=== PATIENT | male | born 1935 | race Caucasian/White ===

== ENCOUNTER 2016-11-05 09:04 | Inpatient (IN) ==
[2016-11-05] MEDS ORDERED: Ipratropium/Albuterol Neb 3 ML IH ONE (09:19)
[2016-11-05] MEDS ORDERED: methylPREDNISolone 125 MG/2 ML VIAL IVP ONE (09:19)
--- NOTE | 2016-11-05 09:52 | Emergency Department Note ---
Disposition Clinical Impression: Community acquired pneumonia, New onset atrial fibrillation Disposition: Admitted As Inpatient Condition: Fair Time of Disposition: 10:31 SOB HPI - General Chief Complaint: ED Shortness of Breath/Dyspnea Stated Complaint: DONNA Time Seen by Provider: 11/05/16 09:16 Source: patient Mode of arrival: ambulatory Limitations: no limitations Nursing Notes Reviewed: Yes Vital Signs Reviewed: Yes - History of Present Illness 80-year-old male with a history of hypertension presents to the emergency department for evaluation of cough, congestion and dyspnea for 1 week. Patient states the day after [place] he began having a productive cough and difficulty breathing. Denies any fevers or chills. He denies any chest pain. He denies any nausea or vomiting. No history of COPD or CHF. He denies any history of DVT or PE. Is not on home O2 and does not have an inhaler at home. Exam is remarkable for an elderly male resting in bed in no acute distress. He is conversational and has a productive cough during the exam of white sputum. Lungs are diminished with bilateral expiratory wheezing and rhonchi noted throughout. Heart is mildly tachycardic and irregular. His abdomen is soft and nontender. He is awake, alert and oriented. O2 saturations 95% on 2 L. Chest x- ray and medications ordered. Pt Subjective Complaint: shortness of breath, cough Onset (ago): week(s) (1) Context: recent illness Severity: moderate Consistency/Duration: constant Improves with: oxygen, bronchodilators Worsens with: nothing Associated symptoms: Reports: cough, wheezing, sputum production. Denies: pain with inspiration, fever, orthopnea, lower extremity pain, palpitations, nausea/ vomiting, abdominal pain Treatment prior to arrival: none Cough present: Yes Cough Description: Voluntary Cough Frequency: Intermittent Sputum production: Yes Sputum Amount: Moderate Sputum Color: White - Related Data Home Medications Medication Instructions Recorded Confirmed Amlodipine Besylate/Benazepril 1 cap PO QPM 11/05/16 11/05/16 [Amlodipine-Benazepril 5-20 mg] Hydrochlorothiazide 12.5 mg PO QAM 11/05/16 11/05/16 [Hydrochlorothiazide] Simvastatin [Zocor] 20 mg PO QPM 11/05/16 11/05/16 Allergies Allergy/AdvReac Type Severity Reaction Status Date / Time No Known Allergies Allergy Verified 11/05/16 09:13 All systems ED: reviewed and negative except as stated. Constitutional: Denies: fever, chills Cardiovascular: Denies: chest pain, palpitations, orthopnea, syncope Respiratory: Reports: cough, dyspnea, wheezes Gastrointestinal: Denies: abdominal pain, nausea, vomiting Genitourinary: Denies: urgency, dysuria Musculoskeletal: Denies: back pain Integumentary: Denies: rash Neurological: Denies: headache, weakness Past Medical History - Past Medical History Medical history: Reports: hypertension Psychiatric history: Reports: no psych history - Social History Smoking Status: Never smoker Smokeless Tobacco Status: No Alcohol use: Reports: none Drug use: Reports: none Physical Exam - General Limitations: no limitations General appearance: alert, in no apparent distress - Head Head exam: atraumatic, normocephalic - Eye Eye exam: Present: normal appearance, PERRL, EOMI - Chest Chest inspection: Present: normal inspection, symmetric chest wall rise - Respiratory Respiratory exam: Present: wheezes, other (Diminished breath sounds with rhonchi bilateral expiratory wheezes.) - Cardiovascular Cardiovascular exam: Present: tachycardia, irregular rhythm, normal heart sounds - Abdominal Exam Abdominal exam: Present: soft, Non-Tender. Absent: tenderness, distention, guarding, rebound, rigidity - Neurological Exam Neurological exam: Present: alert, oriented X3 - Skin Skin exam: Present: warm, dry, intact, normal color Course - Reevaluation(s) Reevaluation #1: X-ray showing left upper lobe infiltrate concerning for pneumonia. Heart rate remains 122 bpm. Patient was tachypnic as well which meets SIRS criteria. Patient will be treated for community acquired pneumonia and admitted to the hospital for further evaluation. Otherwise remains hemodynamically stable and is mentating normally. Time: 10:30 Vital Signs Temperature 98 F 11/05/16 09:08 Pulse Rate 113 11/05/16 09:08 Respiratory Rate 20 11/05/16 09:08 Blood Pressure 136/79 11/05/16 09:08 O2 Sat by Pulse Oximetry 96 11/05/16 09:08 Temperature 98 F 11/05/16 11:53 Pulse Rate 113 11/05/16 11:18 Respiratory Rate 18 11/05/16 11:53 Blood Pressure 136/67 11/05/16 11:53 O2 Sat by Pulse Oximetry 95 11/05/16 11:18 Oxygen Delivery Oxygen Delivery Nasal Cannula Shortness of Breath/Dyspnea - Medical Records Medical records reviewed: Yes I reviewed the patient's medical records. - Lab Data Result diagrams: 11/05/16 09:20 11/05/16 09:20 Lab Results 11/05/16 11/05/16 11/05/16 Range/Units 09:20 09:20 09:20 WBC (4.3-11.1) K/mcL RBC (4.19-5.50) M/mcL Hgb (12.9-16.9) g/dL Hct (37.5-50.1) % MCV (83.0-100.0) fL MCH (28.0-33.3) pg MCHC (31.6-35.5) g/dL RDW (11.5-14.5) % Plt Count (140-400) K/mcL MPV (9.4-12.4) fL Immature Gran % (0-4) % Seg Neutrophils % % Lymphocytes % % Monocytes % % Eosinophils % % Basophils % % Neutrophils # (1.6-8.9) K/mcL Lymphocytes # (0.6-4.6) K/mcL Monocytes # (0.0-1.3) K/mcL Eosinophils # (0.0-0.6) K/mcL Basophils # (0.0-0.2) K/mcL PT 12.0 (9.4-12.1) Seconds INR 1.1 APTT 27.8 (26.0-36.0) Seconds Sodium 141 (136-145) mEq/L Potassium 3.5 (3.5-4.5) mEq/L Chloride 104 (98-109) mEq/L Carbon Dioxide 26 (19-29) mEq/L BUN 20 (8-26) mg/dL Creatinine 0.84 (0.72-1.25) mg/dL Est GFR ( Amer) > 60 (> 60) Est GFR (Non-Af Amer) > 60 (> 60) BUN/Creatinine Ratio 24 (6-26) Glucose 108 H (70-99) mg/dL Calculated Osmolality 295 (280-300) Lactic Acid (0.5-2.2) mmol/L Calcium 8.6 (8.6-10.8) mg/dL Troponin I 0.03 (0-0.03) ng/mL 01/01/17 01/01/17 Range/Units 09:20 09:20 WBC 11.2 H (4.3-11.1) K/mcL RBC 5.47 (4.19-5.50) M/mcL Hgb 14.5 (12.9-16.9) g/dL Hct 45.6 (37.5-50.1) % MCV 83.4 (83.0-100.0) fL MCH 26.5 L (28.0-33.3) pg MCHC 31.8 (31.6-35.5) g/dL RDW 13.9 (11.5-14.5) % Plt Count 243 (140-400) K/mcL MPV 12.3 (9.4-12.4) fL Immature Gran % 0.4 (0-4) % Seg Neutrophils % 75.3 % Lymphocytes % 7.9 % Monocytes % 15.2 % Eosinophils % 0.8 % Basophils % 0.4 % Neutrophils # 8.5 (1.6-8.9) K/mcL Lymphocytes # 0.9 (0.6-4.6) K/mcL Monocytes # 1.7 H (0.0-1.3) K/mcL Eosinophils # 0.1 (0.0-0.6) K/mcL Basophils # 0.0 (0.0-0.2) K/mcL PT (9.4-12.1) Seconds INR APTT (26.0-36.0) Seconds Sodium (136-145) mEq/L Potassium (3.5-4.5) mEq/L Chloride (98-109) mEq/L Carbon Dioxide (19-29) mEq/L BUN (8-26) mg/dL Creatinine (0.72-1.25) mg/dL Est GFR ( Amer) (> 60) Est GFR (Non-Af Amer) (> 60) BUN/Creatinine Ratio (6-26) Glucose (70-99) mg/dL Calculated Osmolality (280-300) Lactic Acid 2.7 H (0.5-2.2) mmol/L Calcium (8.6-10.8) mg/dL Troponin I (0-0.03) ng/mL - Radiology Data Radiology results reviewed: Yes I reviewed the patient's radiology results. - EKG Data EKG attestation: Yes I reviewed and interpreted this EKG. Rate: Reports: tachycardia Rhythm: Reports: A.Fib [place]/QRS: Reports: RBBB When compared to previous EKG there are: no significant changes Attestation Statement - Attestation Attestation: I examined this patient and my medical decision-making was reviewed with the Resident Physician. I agree with the documented findings, disposition and treatment plan as described except to the extent set forth below. Scattered rhonchi/wheezing on exam. EKG shows irregluar narrow QRS mild tachycardia, some polymorphic Ps suggestive of MAT, but Ps only present with about half of the beats - EKG most c/w new-onset A-fib. Left sided pneumonia on CXR, pt does not meet HCAP criteria. Sepsis protocol initiated d/t tachycardia and tachypnea.
[2016-11-05] MEDS ORDERED: 0.9 % Sodium Chloride 1,000 ML IVC ONE (09:57)
[2016-11-05 10:07] LABS: Basophils % 0.4 %; Eosinophils # 0.1 K/mcL (0.0-0.6); Eosinophils % 0.8 %; Hematocrit 45.6 % (37.5-50.1); Hemoglobin 14.5 g/dL (12.9-16.9); Immature Granulocytes % 0.4 % (0-4); Lymphocytes # 0.9 K/mcL (0.6-4.6); Lymphocytes % 7.9 %; Mean Corpuscular HGB Conc 31.8 g/dL (31.6-35.5); Mean Corpuscular Hemoglobin 26.5 pg (28.0-33.3); Mean Corpuscular Volume 83.4 fL (83.0-100.0); Mean Platelet Volume 12.3 fL (9.4-12.4); Monocytes # 1.7 K/mcL (0.0-1.3); Monocytes % 15.2 %; Neutrophils # 8.5 K/mcL (1.6-8.9); Platelet Count 243 K/mcL (140-400); Red Blood Count 5.47 M/mcL (4.19-5.50); Red Cell Distribution Width 13.9 % (11.5-14.5); Segmented Neutrophils % 75.3 %
[2016-11-05 10:13] LABS: INR 1.1
[2016-11-05 10:15] LABS: Activated Partial Thrombo Time 27.8 Seconds (26.0-36.0)
[2016-11-05 10:17] LABS: BUN/Creatinine Ratio 24 (6-26); Blood Urea Nitrogen 20 mg/dL (8-26); Calcium 8.6 mg/dL (8.6-10.8); Carbon Dioxide 26 mEq/L (19-29); Chloride 104 mEq/L (98-109); Glucose 108 mg/dL (70-99); Osmolality,Calculated 295 (280-300); Potassium 3.5 mEq/L (3.5-4.5); Sodium 141 mEq/L (136-145); eGFR For African Americans > 60 (> 60); eGFR For Non-African Americans > 60 (> 60)
[2016-11-05] MEDS ORDERED: Azithromycin 250 MG TABLET PO ONE (10:29)
[2016-11-05] MEDS ORDERED: 0.9 % Sodium Chloride 1,000 ML IV ONE ×2 (10:50→10:52)
[2016-11-05] MEDS ORDERED: Acetaminophen 325 MG TABLET PO PRN (11:44)
[2016-11-05] MEDS ORDERED: Ondansetron 4 MG/2 ML VIAL IVP PRN (11:44)
--- NOTE | 2016-11-05 11:44 | Internal Med History&Physical ---
<Lewis Trevino - Last Filed: 11/05/16 11:51> Date of Encounter: 11/05/16 Time of Encounter: 11:00 Assessment and Plan (1) Sepsis Current visit: Yes Status: Acute - 2 SIRS criteria (tachycardia & leukocytosis) with lactic acid at 2.4. - Likely secondary to community acquired pneumonia. - Treat pneumonia with antibiotic. - Hydration with IV NS. Qualifiers: Sepsis type: sepsis due to unspecified organism Qualified Code(s): A41.9 - Sepsis, unspecified organism (2) Community acquired pneumonia Current visit: Yes Status: Acute - Persistent productive cough and shortness of breath with leukocytosis and CXR finding raising the concern of JM pneumonia. - Can be viral or/and bacterial. - Will check respiratory infection panel and urine antigens for Legionella & Strep. pneumoniae. - Continue Rocephin and azithromycin. Plan to de-escalate later based on clinical progression and lab results. - Continue to monitor. (3) Tachycardia Current visit: Yes Status: Acute - EKG was reviewed personally and showed tachycardia with irregular rhythm. Doubt A-fib given p wave before most of QRS. - Likely secondary to current pneumonia and/or possible dehydration. - Treat pneumonia with antibiotic. - Hydration with IV NS. - Telemetry monitoring. (4) Irregular cardiac rhythm Current visit: Yes Status: Acute - See above. (5) HTN (hypertension) Current visit: Yes Status: Chronic - Continue home regiment antihypertensive medications. Qualifiers: Hypertension type: essential hypertension Qualified Code(s): I10 - Essential (primary) hypertension (6) DVT prophylaxis Current visit: Yes Status: Acute - SQ heparin. Internal Medicine - H&P: HPI Chief complaint: Worsening productive cough & shortness of breath Admitted From: Emergency Dept Plans for Post Hospital Care: Home History of present illness: Mr. Manuel is a 80 year old male with PMH of HTN. Patient presents to ED with worsening productive cough and shortness of breath. Patient states he got cold one week ago and his symptoms persist. The sputum is mostly white and no hemoptysis. Patient also has some sinus and nasal congestion. Patient denies fever, chills, chest pain/discomfort, palpitation, peripheral edema. Patient denies any known cardiac disorder. Patient doesn't think he got flu vaccine or pneumoccal vaccine in the past. Past Med Surg Social Fam HX - Past Medical History Medical history: hypertension Psychiatric history: no psych history - Past Surgical History Surgical History: appendectomy, hip replacement (Left) - Social History Smoking Status: Former smoker (Quitted 40 years ago) Smokeless Tobacco Status: No Alcohol use: none Drug use: none - Family History Father Hx Family Cardiac Disorders: Yes (Heart disease) Internal Medicine - H&P: Meds Amlodipine Besylate/Benazepril [Amlodipine-Benazepril 5-20 mg] 1 cap PO QPM 11/21 [History] Hydrochlorothiazide [Hydrochlorothiazide] 12.5 mg PO QAM 11/05/16 [History] Simvastatin [Zocor] 20 mg PO QPM 11/05/16 [History] Allergies No Known Allergies Allergy (Verified 11/05/16 09:13) All Systems PM: A 10-system review of systems was performed and is negative for pertinent findings except as documented above in the HPI. - Constitutional Constitutional: no anorexia, no chills, no fever(s), no weight gain, no weight loss - EENT Eyes: no change in vision Ears: no decreased hearing Nose, mouth and throat: no dysphagia - Cardiovascular Cardiovascular ROS IM: no chest pain, no edema, no palpitations, no syncope - Respiratory Respiratory: as per HPI, cough, dyspnea, excessive phlegm production, change in phlegm color (White), no hemoptysis - Gastrointestinal Gastrointestinal: no abdominal pain, no diarrhea, no hematochezia, no melena, no nausea, no vomiting - Genitourinary Genitourinary ROS male: no difficulty urinating, no dysuria, no hematuria - Musculoskeletal Musculoskeletal ROS IM: no arthralgias, no myalgias - Integumentary Integumentary IM: no pruritus, no rash - Neurological Neurological ROS: no focal weakness, no numbness, no tingling - Hematologic/Lymphatic Hematologic/Lymphatic: no easy bleeding, no easy bruising - Constitutional Vitals: Temp Pulse Resp BP Pulse Ox 98 F 113 18 136/67 95 11/05/16 09:08 11/05/16 11:18 11/05/16 11:18 11/05/16 11:18 11/05/16 11:18 General appearance: Present: cooperative, A&O X 3, no acute distress, answers questions appropriately - Head Head exam: Present: atraumatic, normocephalic - Eye Eye exam: Present: PERRL, conjuntiva pink, sclera anicteric - Neck Neck exam general surgery: Present: supple, trachea midline. Absent: lymphadenopathy - Respiratory Respiratory exam: Present: rhonchi (Some), wheezes (few). Absent: accessory muscle use, rales - Cardiovascular Cardiovascular exam: Present: RRR, +S1, +S2. Absent: diastolic murmur, gallop, rubs, systolic murmur - GI/Abdominal GI/Abdominal exam: Present: normal bowel sounds, soft, no peritoneal signs. Absent: distended, tenderness - Extremities Exam Extremities exam: Present: warm, radial pulses palpable and symetrical. Absent : calf tenderness, cyanotic, pedal edema - Neurological Exam Neurological exam: Present: CN II-XII intact, oriented X3, no focal deficits. Absent: pronater drift, facial droop, speech deficit - Skin Skin exam: Present: dry, intact, warm Internal Med - H&P Results - Labs CBC & Chem 7: 11/05/16 09:20 11/05/16 09:20 <Aniket Parks - Last Filed: 11/05/16 14:40> Date of Encounter: 11/05/16 Internal Medicine - H&P: HPI History of present illness: Mr. Manuel is a 80 year old male Past Med Surg Social Fam HX - Family History Father History Unknown: Yes Living Status: Mother History Unknown: Yes Living Status: Age at : 85 All Systems PM: A 10-system review of systems was performed and is negative for pertinent findings except as documented above in the HPI. - Constitutional Vitals: Temp Pulse Resp BP Pulse Ox 97.9 F 103 15 139/72 96 11/05/16 11:59 11/05/16 11:59 11/05/16 11:59 11/05/16 11:59 11/05/16 11:59 Internal Med - H&P Results - Labs CBC & Chem 7: 11/05/16 09:20 11/05/16 09:20 - Attending Attestation I have seen and examined this patient independently. I have discussed the case with the resident, Dr. Trevino. I agree with the data gathering in the HPI, physical examination findings, assessment and plan as documented by the resident. Tachycardia, leukocytosis and elevaiton of lactic acid in setting of CAP. Continue antibiotics and fluids. Doing better. Anticipate early discharge. The plan of care was discussed in detail with the patient and his daughters, they expressed understanding.
[2016-11-05] MEDS ORDERED: 0.9 % Sodium Chloride 1,000 ML IVC SCH (11:45)
[2016-11-05 14:44] LABS: Adenovirus Not Detected (Not Detect); Bordetella Pertussis Not Detected (Not Detect); Chlamydophila pneumoniae Not Detected (Not Detect); Coronavirus 229E Not Detected (Not Detect); Coronavirus HKU1 Not Detected (Not Detect); Coronavirus NL63 Not Detected (Not Detect); Coronavirus OC43 Not Detected (Not Detect); Human Metapneumovirus Not Detected (Not Detect); Human Rhinovirus/Enterovirus Not Detected (Not Detect); Influenza A Subtype 2009 H1 Not Detected (Not Detect); Influenza A Untypeable Not Detected (Not Detect); Influenza B Not Detected (Not Detect); Mycoplasma pneumoniae Not Detected (Not Detect); Parainfluenza Virus 1 Not Detected (Not Detect); Parainfluenza Virus 2 Not Detected (Not Detect); Parainfluenza Virus 3 Not Detected (Not Detect); Parainfluenza Virus 4 Not Detected (Not Detect); Respiratory Syncytial Virus Not Detected (Not Detect)
[2016-11-05] MEDS: 0.9 % Sodium Chloride 1,000 ML IVC SCH (15:01)
[2016-11-05] MEDS: *HR* Heparin 5,000 UNIT/ML VIAL SQ SCH (16:50)
[2016-11-05] MEDS: amLODIPine 5 MG TABLET PO SCH (16:57)
[2016-11-05] MEDS: Lisinopril 20 MG TABLET PO SCH (16:57)
[2016-11-06] MEDS: 0.9 % Sodium Chloride 1,000 ML IVC SCH (01:40)
[2016-11-06] MEDS: *HR* Heparin 5,000 UNIT/ML VIAL SQ SCH ×3 (01:40→17:07)
[2016-11-06 05:21] LABS: Hematocrit 36.5 % (37.5-50.1)
[2016-11-06 05:22] LABS: Basophils % 0.2 %; Immature Granulocytes % 1.1 % (0-4); Lymphocytes # 0.6 K/mcL (0.6-4.6); Lymphocytes % 4.3 %; Mean Corpuscular HGB Conc 32.9 g/dL (31.6-35.5); Mean Corpuscular Hemoglobin 27.3 pg (28.0-33.3); Mean Platelet Volume 12.3 fL (9.4-12.4); Monocytes # 1.2 K/mcL (0.0-1.3); Monocytes % 7.8 %; Neutrophils # 12.8 K/mcL (1.6-8.9); Platelet Count 199 K/mcL (140-400); Red Cell Distribution Width 13.7 % (11.5-14.5); Segmented Neutrophils % 86.6 %
[2016-11-06 06:41] LABS: BUN/Creatinine Ratio 31 (6-26); Blood Urea Nitrogen 24 mg/dL (8-26); Calcium 7.8 mg/dL (8.6-10.8); Carbon Dioxide 22 mEq/L (19-29); Chloride 110 mEq/L (98-109); Glucose 144 mg/dL (70-99); Osmolality,Calculated 299 (280-300); Potassium 3.4 mEq/L (3.5-4.5); Sodium 141 mEq/L (136-145); eGFR For African Americans > 60 (> 60); eGFR For Non-African Americans > 60 (> 60)
--- NOTE | 2016-11-06 08:16 | Internal Med Progress Note ---
<Kendall Reynolds - Last Filed: 11/06/16 13:35> Date of Encounter: 11/06/16 Time of Encounter: 08:12 - Assessment and plan (1) Community acquired pneumonia Current Visit: Yes Status: Acute Assessment and plan: Left upper lobe infiltrates noted on chest xray, most likely related to CAP. Afebrile, no tachycardia or tachypnea. Legionella and Strep pneumo culture were negative WBC 14.5 Viral serology was negative. Patient continues to improve on antibiotics. No respiratory distress noted. Blood cx. pending Will continue azithromycin and ceftriaxone (both day 2) as well as NS IV fluid. Chest X-Ray 11/05/16 09:19 IMPRESSION: 1. Infiltrate in the left upper lobe, concerning for pneumonia. 2. Low lung volumes with bibasilar atelectasis. D/ / Roderick Miller MD / Roderick Miller MD Interpreting Provider: Roderick Miller MD (2) Sepsis Current Visit: Yes Status: Resolved Assessment and plan: Patient no longer meets sepsis criteria Pt continue to have leukocytosis however no longer displays tachycardia. Tachycardia may also have been related to new onset Afib with RVR. vs. MAT. Lactic acid level has decreased since yesterday and currently is at 2.5. Monitor cbc, Cx, vitals. Continue abx Qualifiers: Sepsis type: sepsis due to unspecified organism Qualified Code(s): A41.9 - Sepsis, unspecified organism (3) Irregular cardiac rhythm Current Visit: Yes Status: Acute Assessment and plan: Patient is currently in irregularly irregular rhythm. Rate is at 80. Prior EKG reading displays A. fib w RVR vs. MAT No history of Afib. No history of CAD. Not anticoagulated. [id number]: 3 Cardio consult Plan for rate control, metoprolo 25mg BID Echo pending (4) HTN (hypertension) Current Visit: Yes Status: Chronic Assessment and plan: Continue home antihypertensive meds. Add 25mg metoprolol BID Qualifiers: Hypertension type: essential hypertension Qualified Code(s): I10 - Essential (primary) hypertension (5) Hypothyroid Current Visit: Yes Status: Acute Assessment and plan: TSH 0.213 Free T3, T4 pending Qualifiers: Hypothyroidism type: unspecified Qualified Code(s): E03.9 - Hypothyroidism , unspecified (6) DVT prophylaxis Current Visit: Yes Status: Acute Assessment and plan: SQ heparin - Subjective Interval history: 80 yo male patient with history of HTN presented through the ED with troubled breathing. Pt states he began coughing up white phlegm had been having trouble breathing a week ago but had delayed medical attention as his PCP was not in office. Antibiotics were started for CAP and this morning pt states that he is feeling much better and is no longer having trouble breathing. He is still intermittently coughing but this has improved. Pt is sitting up eating breakfast and drinking well. Pt is not in any pain. Admits to SOB with exertion. Denies SOB at rest, cp, abd pain, n/v/d, chills, diaphoresis. - Constitutional Vitals: Temp Pulse Resp BP Pulse Ox 97.9 F 78 16 143/81 96 11/06/16 07:47 11/06/16 07:47 11/06/16 07:47 11/06/16 07:47 11/06/16 07:47 General appearance: Present: cooperative, A&O X 3, pleasant, no acute distress, answers questions appropriately - Head Head exam: Present: atraumatic, normocephalic - Eye Eye exam: Present: PERRL, conjuntiva pink, sclera anicteric Pupils: Present: PERRL - ENT ENT exam: Present: normal exam - Neck Neck exam general surgery: Present: normal inspection, trachea midline - Respiratory Respiratory exam: Present: rales, rhonchi - Expanded Respiratory Exam Location: rales: Left - Cardiovascular Cardiovascular exam: Present: irregular rhythm - GI/Abdominal GI/Abdominal exam: Present: normal bowel sounds, soft, no peritoneal signs. Absent: distended, tenderness - Rectal Rectal exam: Present: deferred - Extremities Exam Extremities exam: Present: normal inspection. Absent: pedal edema - Neurological Exam Neurological exam: Present: alert, oriented X3, no focal deficits, strengths equal and symetr throughout Internal Medicine: Result - Labs CBC & Chem 7: 11/06/16 04:27 11/06/16 04:27 Labs: Short CBC 11/06/16 Range/Units 04:27 WBC 14.8 H (4.3-11.1) K/mcL Hgb 12.0 L D (12.9-16.9) g/dL Hct 36.5 L (37.5-50.1) % Plt Count 199 (140-400) K/mcL Neutrophils # 12.8 H (1.6-8.9) K/mcL BMP 11/06/16 04:27 Sodium 141 Potassium 3.4 L Chloride 110 H Carbon Dioxide 22 BUN 24 Creatinine 0.78 Glucose 144 H Calcium 7.8 L - ABG Interpretation ABG results: PT/INR, D-dimer PT 12.0 Seconds (9.4-12.1) 11/05/16 09:20 Consult Discharge Plan - Plan Instructions: Atrial Fibrillation (DC), Pneumonia (DC) Referrals: Jose,Mauricio Corbin MD [Primary Care Provider] - (unable to send a web request for follow-up appointment. Office is closed due to holiday until 11-07-2016. ) <John Preston - Last Filed: 11/06/16 18:54> Date of Encounter: 11/06/16 - Constitutional Vitals: Temp Pulse Resp BP Pulse Ox 97.9 F 62 18 139/78 93 L 11/06/16 17:04 11/06/16 17:04 11/06/16 17:04 11/06/16 17:04 11/06/16 17:04 Internal Medicine: Result - Labs CBC & Chem 7: 11/06/16 04:27 11/06/16 04:27 Labs: Short CBC 11/06/16 Range/Units 04:27 WBC 14.8 H (4.3-11.1) K/mcL Hgb 12.0 L D (12.9-16.9) g/dL Hct 36.5 L (37.5-50.1) % Plt Count 199 (140-400) K/mcL Neutrophils # 12.8 H (1.6-8.9) K/mcL BMP 11/06/16 04:27 Sodium 141 Potassium 3.4 L Chloride 110 H Carbon Dioxide 22 BUN 24 Creatinine 0.78 Glucose 144 H Calcium 7.8 L - ABG Interpretation ABG results: PT/INR, D-dimer PT 12.0 Seconds (9.4-12.1) 11/05/16 09:20 - Attending Attestation I examined this patient and my medical decision-making was reviewed with the Resident Physician. I agree with the documented findings, disposition and treatment plan as described
[2016-11-06] MEDS: hydroCHLOROthiazide 25 MG TABLET PO SCH (08:41)
[2016-11-06] MEDS ORDERED: Azithromycin 500 MG in D5% in Water 250 ML IVPB SCH (11:00)
[2016-11-06 11:06] LABS: Thyroid Stimulating Hormone 0.213 mcIU/mL (0.350-4.840)
--- NOTE | 2016-11-06 12:06 | Cardiology Consult Note ---
<Diogenes Bland R - Last Filed: 11/06/16 12:12> Date of Encounter: 11/06/16 Time of Encounter: 12:05 Assessment and Plan (1) Multifocal atrial tachycardia Current Visit: Yes Status: Acute EKG was interpreted by computer as A-Fib. On further review, P waves are present. Telemetry reviewed--P waves noted, no clear evidence of A-Fib. Rhythm certainly irregular with PACs, PVCs. EKG and telemetry reviewed with Dr. Lares--appears to be Multifocal atrial tachycardia in setting of his PNA and sepsis. K 3.4--will replace. TSH low 0.213--recommend treatment of this per primary team. Troponin negative. Will start low dose BB--Lopressor 25mg BID. Check echo to evaluate structure and function. EF preserved when echo was done in 2009. Recommend 48 hour Holter at discharge for further monitoring. Continue tele while inpt. (2) HTN (hypertension) Current Visit: Yes Status: Chronic Still not at goal--add BB. Adjust antihypertensives as necessary. Qualifiers: Hypertension type: essential hypertension Qualified Code(s): I10 - Essential (primary) hypertension Discussion w patient/family: The assessment and plan as outlined above was discussed with the patient and/or family members who expressed understanding and agreement. All questions were answered. Thank you for involving us in the care of your patient. Please call with any questions. I will discuss all the above with Dr. Lares and make changes as necessary. History of Present Illness Consult date: 11/06/16 Requesting physician: Kendall Reynolds Consult reason: Irregular rhythm Chief complaint: dyspnea History of present illness: Mr. Manuel is a 80 year old male with PMH of HTN, HLD. Patient presented to ED with worsening productive cough and shortness of breath. Patient states thought he had the flu--symptoms started one week ago and his symptoms persisted. The sputum is mostly white in color. Patient also has some sinus and nasal congestion. Patient denies fever, chills, chest pain/discomfort, palpitation, peripheral edema. Patient denies any known cardiac history. EKG on admission was read by machine as A-Fib with RVR. Rhythm on telemetry is irregular, but P waves are present. Pt has been diagnosed with pneumonia. Past Med Surg Social Fam HX - Past Medical History Medical history: hypertension Psychiatric history: no psych history - Past Surgical History Surgical History: appendectomy, hip replacement (Left) - Social History Smoking Status: Former smoker (Quitted 40 years ago) Smokeless Tobacco Status: No Alcohol use: none Drug use: none - Family History Father History Unknown: Yes Living Status: Mother History Unknown: Yes Living Status: Age at : 85 Medications and Allergies Amlodipine Besylate/Benazepril [Amlodipine-Benazepril 5-20 mg] 1 cap PO QPM 11/21 [History] Hydrochlorothiazide [Hydrochlorothiazide] 12.5 mg PO QAM 11/05/16 [History] Simvastatin [Zocor] 20 mg PO QPM 11/05/16 [History] Allergies No Known Allergies Allergy (Verified 11/05/16 09:13) All Systems Review: A 10-system review of systems was performed and is negative for pertinent findings except as documented above in the HPI. - Cardiovascular Cardiovascular: as per HPI, dyspnea at rest, dyspnea on exertion - Respiratory Respiratory: cough, dyspnea Physical Examination Vital Signs Temp Pulse Resp BP Pulse Ox 11/06/16 07:47 97.9 F 78 16 143/81 96 11/06/16 03:33 98 F 80 20 144/82 96 11/05/16 23:54 97.8 F 70 18 138/84 96 11/05/16 21:14 97.5 F L 85 16 132/91 95 11/05/16 16:15 98.5 F 92 18 129/80 95 Intake and Output 11/05/16 11/06/16 11/06/16 23:59 07:59 15:59 Intake Total 1000 / 1000 240 / 240 Output Total 125 / 125 Balance 875 / 875 240 / 240 Intake: IV Fluids 1000 / 1000 0.9 % Sodium Chloride 1, 1000 / 1000 000 ML @ 70 mls/hr IVC . [id number] [facility] Rx#: [id number] Oral 240 / 240 Output: Urine 125 / 125 Other: Meal Breakfast Percent of Meal Consumed 75% Weight 106.8 kg Patient Weight 11/06/16 23:59 Weight 106.8 kg General: Conversant, No Apparent Distress HEENT: Atraumatic, Normocephaly, Mucus Membranes Moist Neck: No JVD, Normal carotid pulses Cardiac: Other (irregular) Lungs: Other (rales, rhonchi) Neuro: Alert and responsive, No focal deficits noted Abdomen: Soft, Non-Tender Skin: No rashes noted on visualized skin Musculoskeletal: No Chest Wall Tenderness Extremities: No Clubbing, No Cyanosis, No Edema, Normal Pulses Results 11/06/16 04:27 11/06/16 04:27 Lab Results 11/06/16 11/06/16 04:27 04:27 WBC 14.8 H Hgb 12.0 L D Hct 36.5 L Plt Count 199 Sodium 141 Potassium 3.4 L Chloride 110 H Carbon Dioxide 22 BUN 24 Creatinine 0.78 Glucose 144 H Calcium 7.8 L TSH 0.213 L Short CBC 11/06/16 Range/Units 04:27 WBC 14.8 H (4.3-11.1) K/mcL Hgb 12.0 L D (12.9-16.9) g/dL Hct 36.5 L (37.5-50.1) % Plt Count 199 (140-400) K/mcL Neutrophils # 12.8 H (1.6-8.9) K/mcL BMP 11/06/16 Range/Units 04:27 Sodium 141 (136-145) mEq/L Potassium 3.4 L (3.5-4.5) mEq/L Chloride 110 H (98-109) mEq/L Carbon Dioxide 22 (19-29) mEq/L BUN 24 (8-26) mg/dL Creatinine 0.78 (0.72-1.25) mg/dL Glucose 144 H (70-99) mg/dL Calcium 7.8 L (8.6-10.8) mg/dL Active Medications Acetaminophen (Tylenol) 650 mg PO Q6HR PRN PRN Reason: Mild Pain (1-3) Stop: 05/07/17 11:45 Amlodipine Besylate (Norvasc) 5 mg PO QPM [facility] Stop: 05/07/17 18:01 Last Admin: 11/05/16 16:57 Dose: Not Given Heparin Sodium (Porcine) (Heparin) 5,000 unit SQ Q8HR [facility] Stop: 05/07/17 16:01 Last Admin: 11/06/16 08:41 Dose: 5,000 unit Hydrochlorothiazide (Hydrochlorothiazide) 12.5 mg PO QAM [facility] PRN Reason: Protocol Stop: 05/08/17 09:01 Last Admin: 11/06/16 08:41 Dose: 12.5 mg Azithromycin 500 mg/ Dextrose 250 mls @ 252 mls/hr IVPB Q24H [facility] Stop: 05/08/17 11:01 Ceftriaxone Sodium 1,000 mg/ (Dextrose) 100 mls @ 200 mls/hr IVPB Q24H [facility] Stop: 05/08/17 11:01 Last Admin: 11/06/16 11:37 Dose: 200 mls/hr Sodium Chloride (0.9 % Sodium Chloride) 1,000 mls @ 70 mls/hr IVC .[id number] [facility] Stop: 11/06/16 19:12 Last Admin: 11/06/16 01:40 Dose: 70 mls/hr Lisinopril (Zestril) 20 mg PO QPM [facility] PRN Reason: Protocol Stop: 05/07/17 18:01 Last Admin: 11/05/16 16:57 Dose: Not Given Ondansetron HCl (Zofran) 4 mg IVP Q8HR PRN PRN Reason: Nausea And Vomiting Stop: 05/07/17 11:45 Simvastatin (Zocor) 20 mg PO QPM [facility] PRN Reason: Protocol Stop: 05/07/17 18:01 Last Admin: 11/05/16 16:57 Dose: 20 mg - Imaging and Cardiology Chest Xray: report reviewed Echo: report reviewed (08/2010 Conclusion: 1. LVEF 65% 2. There are no segmental wall motion abnormalities. 3. The left atrium is mildly dilated. 4. The mitral valve is not well seen.The mitral valve has normal structure. 5. There is trace mitral regurgitation. 6. There is trace tricuspid regurgitation. The RVSP is 49 mmHg . 7. Normal Left ventricular size and systolic function.) - EKG Interpretation EKG results cardiology: personally reviewed (interpreted by machine as A-Fib, but appears to be multifocal atrial tachycardia on review), other (12 hour tele AVG HR) Consult Discharge Plan - Plan Instructions: Atrial Fibrillation (DC), Pneumonia (DC) Referrals: Mauricio Garcia MD [Primary Care Provider] - (unable to send a web request for follow-up appointment. Office is closed due to holiday until 11-07-2016. ) <Rhonda Lares - Last Filed: 11/06/16 17:26> Date of Encounter: 11/06/16 Assessment and Plan Discussion w patient/family: The assessment and plan as outlined above was discussed with the patient and/or family members who expressed understanding and agreement. All questions were answered. Thank you for involving us in the care of your patient. Please call with any questions. History of Present Illness History of present illness: Mr. Manuel is a 80 year old male All Systems Review: A 10-system review of systems was performed and is negative for pertinent findings except as documented above in the HPI. Physical Examination Vital Signs, Last 4 Hours Temp Pulse Resp BP Pulse Ox 11/06/16 17:04 97.9 F 62 18 139/78 93 L Results 11/06/16 04:27 11/06/16 04:27 Lab Results 11/06/16 11/06/16 04:27 04:27 WBC 14.8 H Hgb 12.0 L D Hct 36.5 L Plt Count 199 Sodium 141 Potassium 3.4 L Chloride 110 H Carbon Dioxide 22 BUN 24 Creatinine 0.78 Glucose 144 H Calcium 7.8 L TSH 0.213 L - Attending Attestation I examined this patient and my medical decision-making was reviewed with the SOCIOLOGY PROFESSOR/PA/Advanced Practice Nurse/Resident Physician. I agree with the documented findings, disposition and treatment plan. Mr. Manuel's ECGs and telemetry were reviewed. Artifact is present and baseline is not always well visualized. However, p waves are identified which may be in different morphologies possibly suggesting MAT. AF is not definitively seen. We recommend starting low dose BB, adding aspirin and placing a holter at discharge. Echo demonstrates no concerning findings. We will sign off. Please call with questions.
[2016-11-06] MEDS: Aspirin 81 MG TAB.CHEW PO SCH (13:49)
--- NOTE | 2016-11-06 14:31 | ECHO - Doppler Report ---
Echocardiogram Name: Best Manuel Date of Study: 11/06/2016 Date: 1935 Ht: 74.0 in Medical Record#: [id number] Age: 80 Wt: 238.0 lb Gender: Male BSA: 2.34 Order #: [id number] Location: [facility] Room #: 2A Reading Physician: Art Baltazar DO, KASSANDRA, SOPHIE AN Engine Inspector: Sajan Monroe RN Ordering Physician: Kendall Reynolds DO Primary Physician: Mauricio Garcia MD Indications: Arrhythmia Impressions: LVEF 60%. Normal LV chamber size, wall thickness and function. Indeterminate diastolic function. Normal right ventricular structure and function. Moderately dilated left atrium. Mild pulmonary hypertension. Estimated RVSP is 40 mmHg. No significant valvular dysfunction. No previous echocardiograms for comparison. Left Ventricular Wall Motion: Rest Echo Findings All wall segments showed normal motion. Findings: Study Quality * Technically sub-optimal due to poor echocardiographic windows. ECG Findings * Rhythm appears to be atrial fibrillation. Left Ventricle * LVEF 60%. * Normal LV chamber size, wall thickness and function. * Indeterminate diastolic function. Right Ventricle * Normal right ventricular structure and function. Left Atrium * Moderately dilated left atrium. Right Atrium * Mildly dilated right atrium. Interatrial Septum * No evidence of PFO by color Doppler. Aortic Valve * Aortic valve not well visualized. * No aortic regurgitation. * No aortic stenosis. Mitral Valve * Normal mitral valve structure and function. * No mitral stenosis. * Trace mitral regurgitation. Tricuspid Valve * Normal tricuspid valve structure and function. * Trace tricuspid regurgitation. * Mild pulmonary hypertension. * Estimated RVSP is 40 mmHg. * Estimated RA pressure is 5 mmHg. Pulmonic Valve * Pulmonic valve is not well visualized. Aorta * Normally sized aortic root. Pericardium * The pericardium appears normal. IVC * Normal IVC dimensions and inspiratory collapse. Pulmonary Artery * Normal visualized portions of the main pulmonary artery. History Hypertension Hypercholesteremia Years 15 Packs 0.2 Family History of CAD 08/10/2010 a Previous Echo was performed. Measurements: BP: 164/ 94 2D Normal Values RVIDd: 3.20 cm <2.7 cm IVSd: 1.10 cm 0.6 - 1.0 cm LVIDd: 4.00 cm 3.7 - 5.6 cm LVPWd: 1.10 cm 0.6 - 1.1 cm LVIDs: 2.20 cm 1.5 - 3.6 cm LA: 3.70 cm 2.0 - 4.0cm %FS: 45.00 cm >25 % LVOT Diam: 2.00 cm LA volume: Mitral Valve Peak E:.96 m/sec Peak A:1.07 m/sec E/A Ratio:0.9 Peak E' Lat Aron:10.5 cm/s Peak E' Med Aron:10.6 cm/s E/E' Lat Ratio:9.1 E/E' Med Ratio:9.1 Aortic Valve AI pressure Half-time: 382.00 msec Tricuspid Valve TV Regurg Peak Grad: 35.00mmHg TV Regurg Peak Aron: 2.96m/sec Updated by Art Baltazar DO, KASSANDRA, NATALIYA, SOPHIE on 11/06/2016 2:23:35 PM electronically signed on 11/06/2016 2:25:47 PM with status of Final Wall Motion Wilhelm: 1=Normal, 2=Hypokinesis, 3=Akinesis, 4=Dyskinesis, 5=Aneurysmal, 6=Hyperkinetic, X=Not Visualized (Blank)=Missing
--- NOTE | 2016-11-06 14:33 | Electrocardiograph Report ---
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
[2016-11-06] MEDS: Lisinopril 20 MG TABLET PO SCH (17:06)
[2016-11-06] MEDS: amLODIPine 5 MG TABLET PO SCH (17:06)
[2016-11-06] MEDS: Ipratropium/Albuterol Neb 3 ML IH PRN (22:33)
[2016-11-07] MEDS: *HR* Heparin 5,000 UNIT/ML VIAL SQ SCH ×2 (00:07→09:23)
[2016-11-07] MEDS: Ipratropium/Albuterol Neb 3 ML IH PRN (06:47)
[2016-11-07 08:11] LABS: BUN/Creatinine Ratio 35 (6-26); Blood Urea Nitrogen 28 mg/dL (8-26); Calcium 8.3 mg/dL (8.6-10.8); Carbon Dioxide 27 mEq/L (19-29); Chloride 109 mEq/L (98-109); Glucose 85 mg/dL (70-99); Osmolality,Calculated 301 (280-300); Potassium 3.7 mEq/L (3.5-4.5); Sodium 143 mEq/L (136-145); eGFR For African Americans > 60 (> 60); eGFR For Non-African Americans > 60 (> 60)
[2016-11-07 08:26] LABS: Basophils # 0.1 K/mcL (0.0-0.2); Basophils % 0.7 %; Eosinophils # 0.1 K/mcL (0.0-0.6); Eosinophils % 0.6 %; Hematocrit 37.2 % (37.5-50.1); Hemoglobin 11.8 g/dL (12.9-16.9); Immature Granulocytes % 2.4 % (0-4); Lymphocytes # 1.2 K/mcL (0.6-4.6); Lymphocytes % 10.3 %; Mean Corpuscular HGB Conc 31.7 g/dL (31.6-35.5); Mean Corpuscular Hemoglobin 26.4 pg (28.0-33.3); Mean Corpuscular Volume 83.2 fL (83.0-100.0); Monocytes # 1.3 K/mcL (0.0-1.3); Monocytes % 11.2 %; Neutrophils # 8.5 K/mcL (1.6-8.9); Platelet Count 232 K/mcL (140-400); Red Blood Count 4.47 M/mcL (4.19-5.50); Red Cell Distribution Width 13.9 % (11.5-14.5); Segmented Neutrophils % 74.8 %
[2016-11-07 08:29] VITALS: BP 133/64
[2016-11-07] MEDS: hydroCHLOROthiazide 25 MG TABLET PO SCH (09:23)
[2016-11-07] MEDS: Aspirin 81 MG TAB.CHEW PO SCH (09:23)
--- NOTE | 2016-11-07 10:05 | Discharge Summary ---
Date of Encounter: 11/07/16 Time of Encounter: 10:01 - Discharge Diagnosis (1) Community acquired pneumonia Priority: Primary Status: Acute (2) Multifocal atrial tachycardia Priority: Primary Status: Acute (3) HTN (hypertension) Priority: Secondary Status: Chronic Qualifiers: Hypertension type: essential hypertension Qualified Code(s): I10 - Essential (primary) hypertension - Discharge Medications Prescriptions: Amoxicillin/Clavulanate [Augmentin] 500 mg PO BIDWM #10 tablet Metoprolol [Lopressor] 25 mg PO BID #60 tablet Home Medications: Amlodipine Besylate/Benazepril [Amlodipine-Benazepril 5-20 mg] 1 cap PO QPM 11/21 [History] Hydrochlorothiazide 12.5 mg PO QAM 11/05/16 [History] Simvastatin [Zocor] 20 mg PO QPM 11/05/16 [History] Amoxicillin/Clavulanate [Augmentin] 500 mg PO BIDWM #10 tablet 11/07/16 [Rx] Metoprolol [Lopressor] 25 mg PO BID #60 tablet 11/07/16 [Rx] Allergies/Adverse Reactions: Allergies No Known Allergies Allergy (Verified 11/05/16 09:13) Procedures/tests Complete & Pending: Procedures Performed prior 72 hours Category Date Time Status EV echocardiogram Stat Y 11/06/16 09:32 Completed Date of admission: 11/05/16 15:13 Primary care physician: Mauricio Garcia MD Consults: 11/06/16 09:39 Consult to Cardiology [CONS] Routine Comment: Consulting Provider: Cardiology [facility] Reason for Consult: New onset A-fib Call Completed: No Discharging clinician: John Preston Anticipated date of discharge: 11/07/16 - Patient Status Disposition: Home, Self-Care Condition: Fair Functional capacity at discharge: independent ambulation Overall status at discharge: patient is back to baseline - Discharge Instructions Instructions: Atrial Fibrillation (DC), Pneumonia (DC) Follow Up With: Mauricio Garcia MD [Primary Care Provider] - 11/16/16 10:10 am () David Lai CNP [Advanced Practice Nurse] - 11/16/16 3:00 pm - Diet and Activity Activity: resume usual activities as tolerated Diet: advance to your usual diet Interval History: Mr. Manuel is a 80 year old male with PMH of HTN. Patient presents to ED with worsening productive cough and shortness of breath. Patient states he got cold one week ago and his symptoms persist. The sputum is mostly white and no hemoptysis. Patient also has some sinus and nasal congestion. Patient denies fever, chills, chest pain/discomfort, palpitation, peripheral edema. Patient denies any known cardiac disorder. Patient doesn't think he got flu vaccine or pneumoccal vaccine in the past. Hospital course: mable is admitted for Left upper lobe infiltrates noted on chest xray, most likely related to CAP.he was treated with azithromycin and ceftriaxone Afebrile, no tachycardia or tachypnea. Legionella and Strep pneumo culture were negative WBC 14.5 Viral serology was negative. cardio was consulted for further eval of his possible atrial fib EKG was interpreted by computer as A-Fib. On further review as per cardiology, P waves are present. Telemetry reviewed--P waves noted, no clear evidence of A- Fib. Rhythm certainly irregular with PACs, PVCs. EKG and telemetry reviewed with Dr. Lares--appears to be Multifocal atrial tachycardia in setting of his PNA and sepsis. K 3.4--will replace. TSH low 0.213, free t4 is normal, does not need thyroid hormone replacement. Troponin negative. was started on low dose BB--Lopressor 25mg BID. mable cliniclaly improved and is asymptomatic this morning. he is being dc with 48hr holter as advised by cardio adn will follow up with them as OP. Time spent discussing smoking cessation with patient: more than 10 minutes - Time Spent with Patient Total time spent providing and/or coordinating discharge services: Greater than 30 minutes - Constitutional Vitals: Temp Pulse Resp BP Pulse Ox 98.3 F 68 16 133/64 93 L 11/07/16 08:28 11/07/16 08:28 11/07/16 08:28 11/07/16 08:28 11/07/16 08:28 General appearance: Present: cooperative, A&O X 3, pleasant, no acute distress, answers questions appropriately Exam: General: Conversant, No Apparent Distress HEENT: Atraumatic, Normocephaly, Mucus Membranes Moist Neck: No JVD, Normal carotid pulses Cardiac: Other (irregular) Lungs: b/l clear Neuro: Alert and responsive, No focal deficits noted Abdomen: Soft, Non-Tender Skin: No rashes noted on visualized skin Musculoskeletal: No Chest Wall Tenderness Extremities: No Clubbing, No Cyanosis, No Edema, Normal Pulses
[2016-11-07] MEDS ORDERED: FLU VACC QS2016-17 36MOS UP/PF 0.5 ML SYRINGE IM ONE (10:17)
--- NOTE | 2016-11-09 20:09 | Holter Monitor Report ---
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 [place] [address] Monitor Duration: 48 Indications: ARRHYTHMIA Recording Time: 37:30 Time Analyzed: 37:06 Quality of Tracing: GOOD Diary: YES Description of symptoms: NO Baseline ECG demonstrates: wandering atrial pacemaker, possible RV conduction delay Totals: There were 274818 total beats, including ectopy. Average HR was 62. Minimum HR of 42 occurred at 08:14D2 and maximum HR of 148 occurred at 09:32D2. Ventricular Ectopy consisted of 7927 total beats averaging 213.6 beats per hour, 130 paired PVCs. There were 6978 single PVCs. 8 episodes of bigeminy, and 223 episodes of trigeminy. There were 6 runs of non-sustained VT. The longest and fastest was 3 beats, 110 bpm at 04:53D2. AIVR occurred 1 time at 20:03D2, 3 beats at 99 bpm There is 0 evidence of any pauses. 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 Average heart rate = 62 bpm. 2.) A couple episodes of paroxysmal atrial fibrillation are noted. 3.) Frequent PVCs (214 per hour, 5.6% of total heart beats). 4.) 7 short runs of accelerated idioventricular rhythm. All 7 runs were 3 beats long. 5.) Diary returned. No symptoms were reported. Electronically Signed On 11-09-16 20:07:49 EST by Magdi Ugalde MD
== END 2016-11-07 11:36 | disposition home or self-care (01) | DRG 871 ==
LOC: EMEROO 09:04 → 2ANU 09:04
PROVIDERS: ADMIT Internal Medicine; ATTEND Internal Medicine Endocrinology, Diabetes & Metabolism

== ENCOUNTER 2022-03-25 13:09 | Inpatient (IN) ==
[2022-03-25] MEDS ORDERED: 0.9 % Sodium Chloride 500 ML IVC ONE (13:24)
[2022-03-25 13:57] LABS: Bacteria,Urine Few per hpf (None-Few); Bilirubin,Urine Negative (Negative); Blood,Urine Negative (Negative); Clarity,Urine Clear (Clear); Color,Urine Yellow (Yellow); Glucose,Urine (UA) Normal (Normal); Ketones,Urine Trace mg/dL (Negative); Leukocyte Esterase,Urine Negative (Negative); Mucus,Urine Few per lpf (None-Few); Nitrite,Urine Negative (Negative); PH,Urine 5.5 pH Units (5.0-8.0); Protein,Urine 30 mg/dL (Neg-Trace); Specific Gravity,Urine 1.025 (1.010-1.025); Squamous Epithelial Cell,Urine Few per hpf (None-Few); WBC,Urine 0-3 per hpf (0-3)
[2022-03-25 13:59] LABS: Basophils % 0.1 %; Hematocrit 34.1 % (37.5-50.1); Hemoglobin 10.3 g/dL (12.9-16.9); Immature Granulocytes % 1.1 % (0-4); Lymphocytes # 0.5 K/mcL (0.6-4.6); Lymphocytes % 2.2 %; Mean Corpuscular HGB Conc 30.2 g/dL (31.6-35.5); Mean Corpuscular Hemoglobin 23.5 pg (28.0-33.3); Mean Corpuscular Volume 77.7 fL (83.0-100.0); Mean Platelet Volume 10.9 fL (9.4-12.4); Monocytes # 2.1 K/mcL (0.0-1.3); Neutrophils # 20.3 K/mcL (1.6-8.9); Platelet Count 268 K/mcL (140-400); Red Blood Count 4.39 M/mcL (4.19-5.50); Red Cell Distribution Width 16.9 % (11.5-14.5); Segmented Neutrophils % 87.6 %; White Blood Count 23.1 K/mcL (4.3-11.1)
[2022-03-25 14:20] LABS: Calcium 8.8 mg/dL (8.6-10.3); Potassium 3.7 mEq/L (3.5-5.1)
[2022-03-25 14:55] LABS: Troponin I 0.04 ng/mL (< 0.04)
[2022-03-25] MEDS ORDERED: *HR* FentaNYL (PF) 100 MCG/2 ML VIAL IVP ONE (15:43)
[2022-03-25] MEDS ORDERED: Naloxone 0.4 MG/ML INJ IVP PRN ×2 (17:51→18:23)
[2022-03-25] MEDS ORDERED: Ondansetron ODT 4 MG TAB.RAPDIS SL PRN (17:51)
[2022-03-25] MEDS ORDERED: Perflutren Lipid Microsphere 1.3 ML in 0.9 % Sodium Chloride 8.7 ML IVP PRN (17:55)
[2022-03-25] MEDS ORDERED: Ringers Solution, Lactated 1,000 ML IVC SCH (18:00)
[2022-03-25] MEDS ORDERED: Acetaminophen 325 MG TABLET PO PRN (18:23)
[2022-03-25] MEDS ORDERED: *HR* OxyCODONE Immed Rel 5 MG TABLET PO PRN (18:23)
[2022-03-26 01:00] LABS: Basophils % 0.1 %; Hematocrit 30.8 % (37.5-50.1); Hemoglobin 9.3 g/dL (12.9-16.9); Immature Granulocytes % 0.8 % (0-4); Lymphocytes # 0.6 K/mcL (0.6-4.6); Lymphocytes % 2.5 %; Mean Corpuscular HGB Conc 30.2 g/dL (31.6-35.5); Mean Corpuscular Hemoglobin 23.4 pg (28.0-33.3); Mean Corpuscular Volume 77.6 fL (83.0-100.0); Mean Platelet Volume 11.1 fL (9.4-12.4); Monocytes # 1.9 K/mcL (0.0-1.3); Monocytes % 8.5 %; Neutrophils # 19.9 K/mcL (1.6-8.9); Nucleated Red Blood Cells 0.1 /100 WBC (0); Platelet Count 234 K/mcL (140-400); Red Blood Count 3.97 M/mcL (4.19-5.50); Red Cell Distribution Width 17.1 % (11.5-14.5); Segmented Neutrophils % 88.1 %; White Blood Count 22.6 K/mcL (4.3-11.1)
[2022-03-26 01:18] LABS: Calcium 8.2 mg/dL (8.6-10.3); Potassium 3.6 mEq/L (3.5-5.1)
[2022-03-26 01:22] LABS: ABG Base Excess 2 mEq/L (-2 to 3); ABG HCO3 25 mEq/L (21-27); ABG Oxygen Saturation 99 % (95-98); ABG PCO2 34 mmHg (35-45); ABG PH 7.48 pH Units (7.32-7.45); ABG PO2 139 mmHg (85-104); ABG TCO2 26 mEq/L (20-26)
[2022-03-26] MEDS ORDERED: 0.9 % Sodium Chloride 500 ML IVC ONE (01:25)
[2022-03-26] MEDS ORDERED: 0.9 % Sodium Chloride 500 ML ONE (01:27)
[2022-03-26 01:42] LABS: Albumin/Globulin Ratio 1.2 (1.1-2.2); Bilirubin,Direct 0.3 mg/dL (0.0-0.2); Bilirubin,Indirect 0.7 mg/dL (0.0-1.0); Globulin 2.6 g/dL (2.4-3.5); Total Protein 5.6 g/dL (6.4-8.9)
[2022-03-26] MEDS ORDERED: Vancomycin 1,500 MG/265 ML IV.SOLN IVPB ONE (02:00)
[2022-03-26 02:08] LABS: INR 1.2; Prothrombin Time 12.9 Seconds (9.4-12.1)
[2022-03-26] MEDS ORDERED: Acetaminophen 325 MG TABLET PO PRN (02:19)
[2022-03-26] MEDS ORDERED: Perflutren Lipid Microsphere 1.3 ML in 0.9 % Sodium Chloride 8.7 ML IVP PRN (02:19)
[2022-03-26] MEDS ORDERED: Ondansetron ODT 4 MG TAB.RAPDIS SL PRN (02:19)
[2022-03-26] MEDS ORDERED: Naloxone 0.4 MG/ML INJ IVP PRN (02:19)
[2022-03-26] MEDS ORDERED: *HR* OxyCODONE Immed Rel 5 MG TABLET PO PRN (02:19)
[2022-03-26] MEDS: Ringers Solution, Lactated 1,000 ML IVC SCH ×2 (02:34→16:04)
[2022-03-26 04:34] LABS: Adenovirus Not Detected (Not Detect); Bordetella Pertussis Not Detected (Not Detect); Chlamydophila pneumoniae Not Detected (Not Detect); Coronavirus 229E Not Detected (Not Detect); Coronavirus HKU1 Not Detected (Not Detect); Coronavirus NL63 Not Detected (Not Detect); Coronavirus OC43 Not Detected (Not Detect); Human Metapneumovirus Not Detected (Not Detect); Human Rhinovirus/Enterovirus Not Detected (Not Detect); Influenza A Subtype 2009 H1 Not Detected (Not Detect); Influenza B Not Detected (Not Detect); Mycoplasma pneumoniae Not Detected (Not Detect); Parainfluenza Virus 1 Not Detected (Not Detect); Parainfluenza Virus 2 Not Detected (Not Detect); Parainfluenza Virus 3 Not Detected (Not Detect); Parainfluenza Virus 4 Not Detected (Not Detect); Respiratory Syncytial Virus Not Detected (Not Detect); SARS-CoV-2 Not Detected (Not Detect)
[2022-03-26 04:37] LABS: Sodium, Urine 40.4 mEq/L
[2022-03-26 07:13] LABS: VBG Ionized Calcium 1.03 mmol/L (1.15-1.35)
[2022-03-26 07:54] LABS: Estimated Average Glucose 111 mg/dl; Hemoglobin A1C 5.5 %
[2022-03-26] MEDS ORDERED: Piperacillin/Tazobactam 3.375 GM in 0.9 % Sodium Chloride Mini Bag 100 ML IVPB SCH (08:00)
[2022-03-26] MEDS ORDERED: cefTRIAXone 1,000 MG in Water for inj. (sterile) 10 ML IVP SCH (09:00)
[2022-03-26] MEDS: Piperacillin/Tazobactam 3.375 GM in 0.9 % Sodium Chloride Mini Bag 100 ML IVPB SCH ×3 (09:15→23:20)
[2022-03-27] MEDS ORDERED: *HR* Metoprolol 5 MG/5 ML VIAL IVP PRN ×2 (02:08→06:20)
[2022-03-27] MEDS ORDERED: *HR* Metoprolol 5 MG/5 ML VIAL IVP ONE (02:11)
[2022-03-27 02:17] LABS: Basophils % 0.1 %; Hematocrit 26.1 % (37.5-50.1); Hemoglobin 7.8 g/dL (12.9-16.9); Immature Granulocytes % 1.1 % (0-4); Lymphocytes # 0.5 K/mcL (0.6-4.6); Lymphocytes % 2.4 %; Mean Corpuscular HGB Conc 29.9 g/dL (31.6-35.5); Mean Corpuscular Hemoglobin 23.7 pg (28.0-33.3); Mean Corpuscular Volume 79.3 fL (83.0-100.0); Mean Platelet Volume 11.4 fL (9.4-12.4); Monocytes # 1.7 K/mcL (0.0-1.3); Monocytes % 9.1 %; Neutrophils # 16.5 K/mcL (1.6-8.9); Nucleated Red Blood Cells 0.2 /100 WBC (0); Platelet Count 188 K/mcL (140-400); Red Blood Count 3.29 M/mcL (4.19-5.50); Red Cell Distribution Width 17.3 % (11.5-14.5); Segmented Neutrophils % 87.3 %; White Blood Count 18.8 K/mcL (4.3-11.1)
[2022-03-27 02:39] LABS: Albumin 2.6 g/dL (3.5-5.7); Bilirubin,Total 0.8 mg/dL (0.3-1.0); Calcium 7.7 mg/dL (8.6-10.3); Globulin 2.5 g/dL (2.4-3.5); Magnesium 1.9 mg/dL (1.6-2.6); Phosphorous 3.5 mg/dL (2.7-4.5); Potassium 3.7 mEq/L (3.5-5.1); Total Protein 5.1 g/dL (6.4-8.9)
[2022-03-27] MEDS ORDERED: Calcium Gluconate 1gm/50mL 1 GM/50 ML BAG IVPB ONE (02:59)
[2022-03-27] MEDS: Piperacillin/Tazobactam 3.375 GM in 0.9 % Sodium Chloride Mini Bag 100 ML IVPB SCH ×3 (07:54→23:16)
[2022-03-27] MEDS: Cholecalciferol (D-3) 1,000 UNIT (25MCG) TABLET PO SCH (07:58)
[2022-03-27] MEDS: Multivit/Ca/Min/Fe/FA 1 TAB TABLET PO SCH (07:58)
[2022-03-27] MEDS ORDERED: Magnesium Oxide 400 MG TABLET PO ONE (08:20)
[2022-03-27] MEDS ORDERED: 0.9 % Sodium Chloride 250 ML IVC SCH (10:15)
[2022-03-27] MEDS ORDERED: *HR* Etomidate 20 MG/10 ML AMPUL IVP ONE ×2 (10:57)
[2022-03-27] MEDS ORDERED: *HR* Midazolam HCl 2 MG/2 ML VIAL IVP ONE (10:57)
[2022-03-27] MEDS ORDERED: *HR* Midazolam HCl 5 MG/5 ML VIAL IVP ONE (10:57)
[2022-03-27 15:09] LABS: Basophils % 0.2 %; Hematocrit 29.6 % (37.5-50.1); Hemoglobin 8.8 g/dL (12.9-16.9); Lymphocytes # 0.6 K/mcL (0.6-4.6); Lymphocytes % 2.5 %; Mean Corpuscular HGB Conc 29.7 g/dL (31.6-35.5); Mean Corpuscular Hemoglobin 23.7 pg (28.0-33.3); Mean Corpuscular Volume 79.6 fL (83.0-100.0); Mean Platelet Volume 11.2 fL (9.4-12.4); Monocytes # 2.1 K/mcL (0.0-1.3); Monocytes % 9.2 %; Neutrophils # 19.1 K/mcL (1.6-8.9); Nucleated Red Blood Cells 0.4 /100 WBC (0); Platelet Count 222 K/mcL (140-400); Red Blood Count 3.72 M/mcL (4.19-5.50); Red Cell Distribution Width 17.3 % (11.5-14.5); Segmented Neutrophils % 86.1 %; White Blood Count 22.2 K/mcL (4.3-11.1)
[2022-03-27] MEDS ORDERED: Albumin Human 5% 12.5 GM/250 ML IV.SOLN ONE (15:17)
[2022-03-27] MEDS ORDERED: Artificial Tears SOLN 15 ML BOTTLE BOTH EYES PRN (15:18)
[2022-03-27] MEDS ORDERED: *HR* FentaNYL (PF) 100 MCG/2 ML VIAL ONE (15:20)
[2022-03-27 15:23] LABS: Prothrombin Time 11.5 Seconds (9.4-12.1)
[2022-03-27 15:24] LABS: Prothrombin Time 11.6 Seconds (9.4-12.1)
[2022-03-27] MEDS: FentaNYL (PF) 1,000 MCG/100 ML IV.SOLN IVC SCH ×2 (15:35→19:55)
[2022-03-27] MEDS: Norepinephrine 4 MG/254 ML IV.SOLN IVC SCH (15:40)
[2022-03-27] MEDS ORDERED: *HR* FentaNYL (PF) 100 MCG/2 ML VIAL IVP ONE (15:56)
[2022-03-27 16:34] LABS: ABG Base Excess 1 mEq/L (-2 to 3); ABG HCO3 26 mEq/L (21-27); ABG Oxygen Saturation 100 % (95-98); ABG PCO2 43 mmHg (35-45); ABG PH 7.39 pH Units (7.32-7.45); ABG PO2 342 mmHg (85-104); ABG TCO2 28 mEq/L (20-26); Blood Gas Modality ASSIST CONTROL; Blood Gas VT 480 cc
[2022-03-27] MEDS: Pantoprazole 40 MG VIAL IVP SCH (16:39)
[2022-03-27] MEDS: Artificial Tears SOLN 15 ML BOTTLE BOTH EYES SCH ×3 (16:39→23:17)
[2022-03-27] MEDS: Dexmedetomidine HCl 400 MCG/100 ML MLS IVC SCH (16:40)
[2022-03-27] MEDS: Ringers Solution, Lactated 1,000 ML IVC SCH (18:30)
[2022-03-27] MEDS: Chlorhexidine Rinse 15 ML MOUTHWASH MM SCH (19:56)
[2022-03-27] MEDS ORDERED: Isovue-370 500 ML BOTTLE IVP ONE (21:20)
[2022-03-28] MEDS: Norepinephrine 4 MG/254 ML IV.SOLN IVC SCH ×2 (00:06→18:04)
[2022-03-28 01:06] LABS: Basophils % 0.2 %; Eosinophils % 0.1 %; Hematocrit 24.9 % (37.5-50.1); Hemoglobin 7.4 g/dL (12.9-16.9); Immature Granulocytes % 1.9 % (0-4); Lymphocytes # 0.8 K/mcL (0.6-4.6); Lymphocytes % 4.3 %; Mean Corpuscular HGB Conc 29.7 g/dL (31.6-35.5); Mean Corpuscular Hemoglobin 23.6 pg (28.0-33.3); Mean Corpuscular Volume 79.3 fL (83.0-100.0); Mean Platelet Volume 10.9 fL (9.4-12.4); Monocytes # 2.1 K/mcL (0.0-1.3); Monocytes % 11.3 %; Neutrophils # 15.4 K/mcL (1.6-8.9); Nucleated Red Blood Cells 0.6 /100 WBC (0); Platelet Count 217 K/mcL (140-400); Red Blood Count 3.14 M/mcL (4.19-5.50); Red Cell Distribution Width 17.4 % (11.5-14.5); Segmented Neutrophils % 82.2 %; White Blood Count 18.7 K/mcL (4.3-11.1)
[2022-03-28] MEDS: FentaNYL (PF) 1,000 MCG/100 ML IV.SOLN IVC SCH (03:09)
[2022-03-28] MEDS: Artificial Tears SOLN 15 ML BOTTLE BOTH EYES SCH ×6 (03:09→23:59)
[2022-03-28 03:43] LABS: Basophils # 0.1 K/mcL (0.0-0.2); Basophils % 0.3 %; Eosinophils # 0.1 K/mcL (0.0-0.6); Eosinophils % 0.4 %; Hematocrit 25.6 % (37.5-50.1); Hemoglobin 7.6 g/dL (12.9-16.9); Immature Granulocytes % 2.2 % (0-4); Lymphocytes % 5.1 %; Mean Corpuscular HGB Conc 29.7 g/dL (31.6-35.5); Mean Corpuscular Hemoglobin 23.7 pg (28.0-33.3); Mean Corpuscular Volume 79.8 fL (83.0-100.0); Mean Platelet Volume 10.9 fL (9.4-12.4); Monocytes # 2.3 K/mcL (0.0-1.3); Monocytes % 12.2 %; Nucleated Red Blood Cells 0.8 /100 WBC (0); Platelet Count 205 K/mcL (140-400); Red Blood Count 3.21 M/mcL (4.19-5.50); Red Cell Distribution Width 17.4 % (11.5-14.5); Segmented Neutrophils % 79.8 %; White Blood Count 18.8 K/mcL (4.3-11.1)
[2022-03-28 03:59] LABS: Albumin 2.7 g/dL (3.5-5.7); Albumin/Globulin Ratio 1.2 (1.1-2.2); Calcium 7.7 mg/dL (8.6-10.3); Globulin 2.3 g/dL (2.4-3.5); Potassium 3.7 mEq/L (3.5-5.1)
[2022-03-28] MEDS: Ringers Solution, Lactated 1,000 ML IVC SCH (04:41)
[2022-03-28 05:04] LABS: ABG Base Excess -1 mEq/L (-2 to 3); ABG HCO3 24 mEq/L (21-27); ABG Oxygen Saturation 97 % (95-98); ABG PCO2 38 mmHg (35-45); ABG PO2 88 mmHg (85-104); ABG TCO2 25 mEq/L (20-26); Blood Gas Modality AF; Blood Gas VT 480 cc
[2022-03-28] MEDS: Cholecalciferol (D-3) 1,000 UNIT (25MCG) TABLET PO SCH (07:19)
[2022-03-28] MEDS: Multivit/Ca/Min/Fe/FA 1 TAB TABLET PO SCH (07:19)
[2022-03-28] MEDS: Chlorhexidine Rinse 15 ML MOUTHWASH MM SCH ×2 (08:22→21:22)
[2022-03-28] MEDS: Pantoprazole 40 MG VIAL IVP SCH (08:22)
[2022-03-28] MEDS: Piperacillin/Tazobactam 3.375 GM in 0.9 % Sodium Chloride Mini Bag 100 ML IVPB SCH ×3 (08:22→23:58)
[2022-03-28 11:46] LABS: VBG Ionized Calcium 1.11 mmol/L (1.15-1.35)
[2022-03-28 12:06] LABS: Magnesium 2.6 mg/dL (1.6-2.6); Phosphorous 3.3 mg/dL (2.7-4.5)
[2022-03-28] MEDS: Dexmedetomidine HCl 400 MCG/100 ML MLS IVC SCH (12:59)
[2022-03-28] MEDS ORDERED: Vancomycin 1,250 MG/262.5 ML IV.SOLN IVPB SCH (14:00)
[2022-03-28] MEDS: *HR* Heparin 5,000 UNIT/ML VIAL SQ SCH ×2 (15:31→21:22)
[2022-03-28] MEDS ORDERED: Amiodarone Premix 360 MG/200 ML BAG IVC ONE ×2 (15:36→17:26)
[2022-03-28] MEDS ORDERED: Amiodarone Premix 150 MG/100 ML BAG IVPB ONE (15:36)
[2022-03-28] MEDS ORDERED: 0.9 % Sodium Chloride 250 ML ONE (17:25)
[2022-03-28] MEDS: Amiodarone Premix 360 MG/200 ML BAG IVC SCH (21:22)
[2022-03-29] MEDS: Artificial Tears SOLN 15 ML BOTTLE BOTH EYES SCH ×2 (02:29→08:20)
[2022-03-29 04:16] LABS: Basophils # 0.1 K/mcL (0.0-0.2); Basophils % 0.5 %; Eosinophils # 0.1 K/mcL (0.0-0.6); Eosinophils % 0.5 %; Hematocrit 29.3 % (37.5-50.1); Hemoglobin 8.9 g/dL (12.9-16.9); Immature Granulocytes % 3.8 % (0-4); Lymphocytes # 0.7 K/mcL (0.6-4.6); Lymphocytes % 5.1 %; Mean Corpuscular HGB Conc 30.4 g/dL (31.6-35.5); Mean Corpuscular Hemoglobin 24.6 pg (28.0-33.3); Mean Corpuscular Volume 80.9 fL (83.0-100.0); Mean Platelet Volume 11.1 fL (9.4-12.4); Monocytes # 1.7 K/mcL (0.0-1.3); Monocytes % 12.5 %; Neutrophils # 10.3 K/mcL (1.6-8.9); Nucleated Red Blood Cells 0.5 /100 WBC (0); Platelet Count 164 K/mcL (140-400); Red Blood Count 3.62 M/mcL (4.19-5.50); Red Cell Distribution Width 17.2 % (11.5-14.5); Segmented Neutrophils % 77.6 %; White Blood Count 13.3 K/mcL (4.3-11.1)
[2022-03-29 04:36] LABS: Calcium 7.7 mg/dL (8.6-10.3); Potassium 3.6 mEq/L (3.5-5.1)
[2022-03-29 04:45] LABS: Troponin I 0.06 ng/mL (< 0.04)
[2022-03-29] MEDS: *HR* Heparin 5,000 UNIT/ML VIAL SQ SCH ×3 (05:39→22:39)
[2022-03-29] MEDS: Calcium Gluconate 1gm/50mL 1 GM/50 ML BAG IVPB SCH ×2 (06:08→07:08)
[2022-03-29 06:24] LABS: Magnesium 2.6 mg/dL (1.6-2.6); Phosphorous 3.3 mg/dL (2.7-4.5)
[2022-03-29] MEDS: Piperacillin/Tazobactam 3.375 GM in 0.9 % Sodium Chloride Mini Bag 100 ML IVPB SCH ×2 (08:21→15:42)
[2022-03-29] MEDS: Chlorhexidine Rinse 15 ML MOUTHWASH MM SCH (08:22)
[2022-03-29] MEDS: Pantoprazole 40 MG VIAL IVP SCH (08:22)
[2022-03-29] MEDS: Multivit/Ca/Min/Fe/FA 1 TAB TABLET PO SCH (08:23)
[2022-03-29] MEDS: Amiodarone Premix 360 MG/200 ML BAG IVC SCH (08:23)
[2022-03-29] MEDS: Cholecalciferol (D-3) 1,000 UNIT (25MCG) TABLET PO SCH (08:23)
[2022-03-29] MEDS: Norepinephrine 4 MG/254 ML IV.SOLN IVC SCH (08:24)
[2022-03-29] MEDS: Dexmedetomidine HCl 400 MCG/100 ML MLS IVC SCH (08:24)
[2022-03-29] MEDS ORDERED: *HR* Amiodarone 200 MG TABLET PO SCH ×2 (15:00→21:00)
[2022-03-29] MEDS ORDERED: Artificial Tears SOLN 15 ML BOTTLE BOTH EYES PRN (16:57)
[2022-03-29] MEDS ORDERED: Acetaminophen 325 MG TABLET PO PRN (16:57)
[2022-03-29] MEDS ORDERED: *HR* Metoprolol 5 MG/5 ML VIAL IVP PRN (16:57)
[2022-03-29] MEDS ORDERED: Ondansetron ODT 4 MG TAB.RAPDIS SL PRN (16:57)
[2022-03-29] MEDS ORDERED: Naloxone 0.4 MG/ML INJ IVP PRN (16:57)
[2022-03-30] MEDS: Piperacillin/Tazobactam 3.375 GM in 0.9 % Sodium Chloride Mini Bag 100 ML IVPB SCH ×3 (00:19→15:20)
[2022-03-30 03:48] LABS: Hematocrit 28.6 % (37.5-50.1); Hemoglobin 8.9 g/dL (12.9-16.9); Mean Corpuscular HGB Conc 31.1 g/dL (31.6-35.5); Mean Corpuscular Hemoglobin 24.7 pg (28.0-33.3); Mean Corpuscular Volume 79.4 fL (83.0-100.0); Mean Platelet Volume 11.1 fL (9.4-12.4); Platelet Count 178 K/mcL (140-400); Red Cell Distribution Width 17.8 % (11.5-14.5)
[2022-03-30 03:56] LABS: BUN/Creatinine Ratio 41 (6-26); Blood Urea Nitrogen 56 mg/dL (8-23); Calcium 7.9 mg/dL (8.6-10.3); Carbon Dioxide 23 mEq/L (23-29); Chloride 112 mEq/L (98-107); Glucose 121 mg/dL (70-105); Magnesium 2.5 mg/dL (1.6-2.6); Osmolality,Calculated 311 (280-300); Potassium 3.8 mEq/L (3.5-5.1); Sodium 142 mEq/L (136-145); eGFR For African Americans > 60 (> 60); eGFR For Non-African Americans 50 (> 60)
[2022-03-30] MEDS: *HR* Heparin 5,000 UNIT/ML VIAL SQ SCH ×3 (06:27→20:16)
[2022-03-30] MEDS: Cholecalciferol (D-3) 1,000 UNIT (25MCG) TABLET PO SCH (09:44)
[2022-03-30] MEDS: Multivit/Ca/Min/Fe/FA 1 TAB TABLET PO SCH (09:44)
[2022-03-30] MEDS ORDERED: E-Z-HD (BARIUM SULF) SUSPENSION PO ONE (12:49)
[2022-03-30] MEDS ORDERED: E-Z-PAQUE (BARIUM SULF) SUSP 1 BOTTLE PO ONE (12:49)
[2022-03-30] MEDS: Aspirin Enteric Coated 81 MG Tablet PO SCH (15:13)
[2022-03-30] MEDS: Pantoprazole 40 MG VIAL IVP SCH ×2 (15:13→15:15)
[2022-03-30] MEDS: *HR* Amiodarone 200 MG TABLET PO SCH ×3 (15:13→20:15)
[2022-03-30] MEDS ORDERED: *HR* Amiodarone 200 MG TABLET PO SCH (21:00)
[2022-03-31] MEDS: Piperacillin/Tazobactam 3.375 GM in 0.9 % Sodium Chloride Mini Bag 100 ML IVPB SCH ×3 (00:11→16:50)
[2022-03-31 01:39] LABS: Hematocrit 30.3 % (37.5-50.1); Mean Corpuscular HGB Conc 29.7 g/dL (31.6-35.5); Mean Corpuscular Hemoglobin 24.7 pg (28.0-33.3); Mean Platelet Volume 11.4 fL (9.4-12.4); Platelet Count 190 K/mcL (140-400); Red Blood Count 3.65 M/mcL (4.19-5.50); Red Cell Distribution Width 18.9 % (11.5-14.5)
[2022-03-31 02:03] LABS: BUN/Creatinine Ratio 43 (6-26); Blood Urea Nitrogen 49 mg/dL (8-23); Carbon Dioxide 25 mEq/L (23-29); Chloride 111 mEq/L (98-107); Glucose 100 mg/dL (70-105); Magnesium 2.5 mg/dL (1.6-2.6); Osmolality,Calculated 309 (280-300); Potassium 3.8 mEq/L (3.5-5.1); Sodium 143 mEq/L (136-145); eGFR For African Americans > 60 (> 60); eGFR For Non-African Americans > 60 (> 60)
[2022-03-31] MEDS: *HR* Heparin 5,000 UNIT/ML VIAL SQ SCH ×3 (05:20→21:49)
[2022-03-31] MEDS: *HR* Amiodarone 200 MG TABLET PO SCH ×3 (08:42→21:48)
[2022-03-31] MEDS: Aspirin Enteric Coated 81 MG Tablet PO SCH (08:42)
[2022-03-31] MEDS: Cholecalciferol (D-3) 1,000 UNIT (25MCG) TABLET PO SCH (08:42)
[2022-03-31] MEDS: Multivit/Ca/Min/Fe/FA 1 TAB TABLET PO SCH (08:43)
[2022-03-31] MEDS: Pantoprazole 40 MG VIAL IVP SCH (09:10)
[2022-04-01] MEDS: Piperacillin/Tazobactam 3.375 GM in 0.9 % Sodium Chloride Mini Bag 100 ML IVPB SCH ×4 (00:51→23:52)
[2022-04-01 06:24] LABS: Hematocrit 30.3 % (37.5-50.1); Hemoglobin 8.9 g/dL (12.9-16.9); Mean Corpuscular HGB Conc 29.4 g/dL (31.6-35.5); Mean Corpuscular Hemoglobin 24.5 pg (28.0-33.3); Mean Corpuscular Volume 83.2 fL (83.0-100.0); Mean Platelet Volume 11.5 fL (9.4-12.4); Platelet Count 211 K/mcL (140-400); Red Blood Count 3.64 M/mcL (4.19-5.50); Red Cell Distribution Width 19.9 % (11.5-14.5); White Blood Count 12.1 K/mcL (4.3-11.1)
[2022-04-01 06:47] LABS: BUN/Creatinine Ratio 36 (6-26); Blood Urea Nitrogen 39 mg/dL (8-23); Carbon Dioxide 26 mEq/L (23-29); Chloride 111 mEq/L (98-107); Glucose 93 mg/dL (70-105); Magnesium 2.4 mg/dL (1.6-2.6); Osmolality,Calculated 301 (280-300); Potassium 3.9 mEq/L (3.5-5.1); Sodium 141 mEq/L (136-145); eGFR For African Americans > 60 (> 60); eGFR For Non-African Americans > 60 (> 60)
[2022-04-01] MEDS: *HR* Heparin 5,000 UNIT/ML VIAL SQ SCH ×3 (06:50→20:39)
[2022-04-01] MEDS: Aspirin Enteric Coated 81 MG Tablet PO SCH (09:20)
[2022-04-01] MEDS: Cholecalciferol (D-3) 1,000 UNIT (25MCG) TABLET PO SCH (09:20)
[2022-04-01] MEDS: Multivit/Ca/Min/Fe/FA 1 TAB TABLET PO SCH (09:21)
[2022-04-01] MEDS: *HR* Amiodarone 200 MG TABLET PO SCH ×3 (09:23→20:40)
[2022-04-01] MEDS: Pantoprazole 40 MG VIAL IVP SCH (10:51)
[2022-04-01] MEDS: Furosemide 20 MG TABLET PO SCH ×2 (15:39→20:40)
[2022-04-02 02:26] LABS: Hematocrit 29.5 % (37.5-50.1); Hemoglobin 8.9 g/dL (12.9-16.9); Mean Corpuscular HGB Conc 30.2 g/dL (31.6-35.5); Mean Corpuscular Hemoglobin 24.7 pg (28.0-33.3); Mean Corpuscular Volume 81.7 fL (83.0-100.0); Mean Platelet Volume 10.8 fL (9.4-12.4); Platelet Count 215 K/mcL (140-400); Red Blood Count 3.61 M/mcL (4.19-5.50); Red Cell Distribution Width 19.7 % (11.5-14.5); White Blood Count 10.7 K/mcL (4.3-11.1)
[2022-04-02 02:47] LABS: BUN/Creatinine Ratio 30 (6-26); Blood Urea Nitrogen 34 mg/dL (8-23); Calcium 7.9 mg/dL (8.6-10.3); Carbon Dioxide 28 mEq/L (23-29); Chloride 109 mEq/L (98-107); Glucose 105 mg/dL (70-105); Osmolality,Calculated 306 (280-300); Potassium 3.5 mEq/L (3.5-5.1); Sodium 144 mEq/L (136-145); eGFR For African Americans > 60 (> 60); eGFR For Non-African Americans > 60 (> 60)
[2022-04-02] MEDS: *HR* Heparin 5,000 UNIT/ML VIAL SQ SCH ×3 (05:51→21:16)
[2022-04-02] MEDS: Pantoprazole 40 MG VIAL IVP SCH (08:00)
[2022-04-02] MEDS: Piperacillin/Tazobactam 3.375 GM in 0.9 % Sodium Chloride Mini Bag 100 ML IVPB SCH ×2 (08:00→16:53)
[2022-04-02] MEDS: *HR* Amiodarone 200 MG TABLET PO SCH ×3 (08:01→21:17)
[2022-04-02] MEDS: Aspirin Enteric Coated 81 MG Tablet PO SCH (08:01)
[2022-04-02] MEDS: Multivit/Ca/Min/Fe/FA 1 TAB TABLET PO SCH (08:01)
[2022-04-02] MEDS: Cholecalciferol (D-3) 1,000 UNIT (25MCG) TABLET PO SCH (08:01)
[2022-04-02] MEDS: Furosemide 20 MG TABLET PO SCH ×2 (08:01→16:54)
[2022-04-03] MEDS: Piperacillin/Tazobactam 3.375 GM in 0.9 % Sodium Chloride Mini Bag 100 ML IVPB SCH ×2 (00:59→08:35)
[2022-04-03 03:09] LABS: Hematocrit 30.4 % (37.5-50.1); Mean Corpuscular HGB Conc 29.6 g/dL (31.6-35.5); Mean Corpuscular Hemoglobin 24.1 pg (28.0-33.3); Mean Corpuscular Volume 81.5 fL (83.0-100.0); Mean Platelet Volume 10.6 fL (9.4-12.4); Platelet Count 226 K/mcL (140-400); Red Blood Count 3.73 M/mcL (4.19-5.50); White Blood Count 12.4 K/mcL (4.3-11.1)
[2022-04-03 03:24] LABS: BUN/Creatinine Ratio 27 (6-26); Blood Urea Nitrogen 31 mg/dL (8-23); Carbon Dioxide 29 mEq/L (23-29); Chloride 108 mEq/L (98-107); Glucose 97 mg/dL (70-105); Magnesium 1.9 mg/dL (1.6-2.6); Osmolality,Calculated 302 (280-300); Potassium 3.4 mEq/L (3.5-5.1); Sodium 143 mEq/L (136-145); eGFR For African Americans > 60 (> 60); eGFR For Non-African Americans > 60 (> 60)
[2022-04-03] MEDS: *HR* Heparin 5,000 UNIT/ML VIAL SQ SCH ×3 (05:07→23:00)
[2022-04-03] MEDS ORDERED: Potassium Effervescent 25 MEQ TABLET.EFF PO ONE (07:20)
[2022-04-03] MEDS: Pantoprazole 40 MG VIAL IVP SCH (08:25)
[2022-04-03] MEDS: Multivit/Ca/Min/Fe/FA 1 TAB TABLET PO SCH (08:34)
[2022-04-03] MEDS: *HR* Amiodarone 200 MG TABLET PO SCH ×3 (08:34→23:01)
[2022-04-03] MEDS: Cholecalciferol (D-3) 1,000 UNIT (25MCG) TABLET PO SCH (08:35)
[2022-04-03] MEDS: Furosemide 20 MG TABLET PO SCH ×2 (08:35→16:34)
[2022-04-03] MEDS: Aspirin Enteric Coated 81 MG Tablet PO SCH (08:35)
[2022-04-03] MEDS ORDERED: Ipratropium/Albuterol Neb 3 ML IH ONE (09:13)
[2022-04-04] MEDS: *HR* Heparin 5,000 UNIT/ML VIAL SQ SCH ×2 (05:12→14:34)
[2022-04-04] MEDS: *HR* Amiodarone 200 MG TABLET PO SCH ×2 (07:54→14:34)
[2022-04-04] MEDS: Cholecalciferol (D-3) 1,000 UNIT (25MCG) TABLET PO SCH (08:06)
[2022-04-04] MEDS: Pantoprazole 40 MG VIAL IVP SCH (08:06)
[2022-04-04] MEDS: Aspirin Enteric Coated 81 MG Tablet PO SCH (08:06)
[2022-04-04] MEDS: Multivit/Ca/Min/Fe/FA 1 TAB TABLET PO SCH (08:06)
[2022-04-04] MEDS: Furosemide 20 MG TABLET PO SCH (08:07)
[2022-04-04] MEDS ORDERED: Furosemide 20 MG TABLET PO SCH ×2 (08:45→17:00)
[2022-04-04] MEDS ORDERED: Furosemide 20 MG TABLET PO ONE (10:10)
[2022-04-04 13:39] LABS: Adenovirus Not Detected (Not Detect); Bordetella Pertussis Not Detected (Not Detect); Chlamydophila pneumoniae Not Detected (Not Detect); Coronavirus 229E Not Detected (Not Detect); Coronavirus HKU1 Not Detected (Not Detect); Coronavirus NL63 Not Detected (Not Detect); Coronavirus OC43 Not Detected (Not Detect); Human Metapneumovirus Not Detected (Not Detect); Human Rhinovirus/Enterovirus Not Detected (Not Detect); Influenza A Subtype 2009 H1 Not Detected (Not Detect); Influenza B Not Detected (Not Detect); Mycoplasma pneumoniae Not Detected (Not Detect); Parainfluenza Virus 1 Not Detected (Not Detect); Parainfluenza Virus 2 Not Detected (Not Detect); Parainfluenza Virus 3 Not Detected (Not Detect); Parainfluenza Virus 4 Not Detected (Not Detect); Respiratory Syncytial Virus Not Detected (Not Detect); SARS-CoV-2 Not Detected (Not Detect)
[2022-04-04 15:31] VITALS: BP 157/77; PULSE 99; TEMP 97.8; O2SAT 99
== END 2022-04-04 17:44 | disposition other institution (70) | DRG 64 ==
LOC: 2ANU 13:09 → EMEROOARM 13:09 → SUATTDRO 16:58 → 2ANU 17:28 → 2NNU 03-26 02:13 → SUATTDRO 03-26 18:54 → ICNU 03-27 15:21 → 3ANU 03-29 16:57
PROVIDERS: ADMIT Pharmacist; ATTEND Hospitalist

== ENCOUNTER 2022-04-25 22:47 | Inpatient (IN) ==
[2022-04-26] MEDS ORDERED: *HR* Promethazine 25 MG/ML VIAL IM PRN (02:33)
[2022-04-26] MEDS ORDERED: Ondansetron 4 MG/2 ML VIAL IVP PRN (02:33)
[2022-04-26] MEDS ORDERED: Acetaminophen 325 MG TABLET PO PRN (02:33)
[2022-04-26] MEDS ORDERED: Naloxone 0.4 MG/ML INJ IVP PRN (02:33)
[2022-04-26] MEDS ORDERED: *HR* HYDROcodone/Acet 5/325 mg TABLET PO PRN (02:33)
[2022-04-26] MEDS ORDERED: Melatonin 3 MG TABLET PO PRN (02:33)
[2022-04-26] MEDS ORDERED: Pantoprazole 40 MG VIAL IVP ONE (03:11)
[2022-04-26 03:31] LABS: Basophils % 0.4 %; Eosinophils % 0.1 %; Hematocrit 31.3 % (37.5-50.1); Segmented Neutrophils % 84.2 %
[2022-04-26] MEDS ORDERED: *HR* Midazolam HCl 5 MG/5 ML VIAL IVP ONE (03:32)
[2022-04-26] MEDS ORDERED: *HR* Etomidate 20 MG/10 ML AMPUL IVP ONE (03:32)
[2022-04-26] MEDS ORDERED: *HR* Rocuronium Bromide 50 MG/5 ML VIAL IVP ONE (03:32)
[2022-04-26 03:33] LABS: Basophils # 0.1 K/mcL (0.0-0.2); Immature Granulocytes % 1.3 % (0-4); Lymphocytes # 1.2 K/mcL (0.6-4.6); Lymphocytes % 5.9 %; Mean Corpuscular HGB Conc 28.8 g/dL (31.6-35.5); Mean Corpuscular Hemoglobin 25.7 pg (28.0-33.3); Mean Corpuscular Volume 89.4 fL (83.0-100.0); Mean Platelet Volume 10.1 fL (9.4-12.4); Monocytes # 1.7 K/mcL (0.0-1.3); Monocytes % 8.1 %; Neutrophils # 17.3 K/mcL (1.6-8.9); Platelet Count 357 K/mcL (140-400); Red Cell Distribution Width 24.6 % (11.5-14.5); White Blood Count 20.5 K/mcL (4.3-11.1)
[2022-04-26 03:50] LABS: Anisocytosis 2+ (Not Present); Hypochromasia Present (Not Present); Platelet Estimate Normal (Normal)
[2022-04-26 03:51] LABS: INR 1.5; Prothrombin Time 16.4 Seconds (9.4-12.1)
[2022-04-26 03:54] LABS: Activated Partial Thrombo Time 33.2 Seconds (26.0-36.0); BUN/Creatinine Ratio 24 (6-26); Blood Urea Nitrogen 27 mg/dL (8-23); Carbon Dioxide 23 mEq/L (23-29); Chloride 115 mEq/L (98-107); Glucose 99 mg/dL (70-105); Magnesium 1.6 mg/dL (1.6-2.6); Osmolality,Calculated 299 (280-300); Potassium 4.7 mEq/L (3.5-5.1); Sodium 142 mEq/L (136-145); eGFR For African Americans > 60 (> 60); eGFR For Non-African Americans > 60 (> 60)
[2022-04-26] MEDS ORDERED: Iopamidol - 370 500 ML MLS IVP ONE (03:55)
[2022-04-26] MEDS: Ipratropium/Albuterol Neb 3 ML IH SCH ×6 (04:12→23:13)
[2022-04-26] MEDS: Pantoprazole 40 MG in 0.9 % Sodium Chloride Mini Bag 100 ML IVC SCH ×4 (04:24→21:15)
[2022-04-26 04:31] LABS: ABG Base Excess -4 mEq/L (-2 to 3); ABG HCO3 22 mEq/L (21-27); ABG Oxygen Saturation 93 % (95-98); ABG PCO2 45 mmHg (35-45); ABG PH 7.29 pH Units (7.32-7.45); ABG PO2 73 mmHg (85-104); ABG TCO2 23 mEq/L (20-26); Blood Gas Modality AF; Blood Gas VT 500 cc
[2022-04-26] MEDS: Piperacillin/Tazobactam 3.375 GM in 0.9 % Sodium Chloride Mini Bag 100 ML IVPB SCH ×3 (07:01→21:38)
[2022-04-26] MEDS ORDERED: Lidocaine -MPF 1% 5 ML AMPUL INFILT ONE ×2 (07:45→09:34)
[2022-04-26] MEDS: *HR* Amiodarone 200 MG TABLET PO SCH ×2 (08:18→20:47)
[2022-04-26] MEDS ORDERED: Artificial Tears SOLN 15 ML BOTTLE BOTH EYES PRN (10:52)
[2022-04-26] MEDS: Chlorhexidine Rinse 15 ML MOUTHWASH MM SCH ×2 (11:32→21:30)
[2022-04-26] MEDS: Artificial Tears SOLN 15 ML BOTTLE BOTH EYES SCH ×3 (11:32→20:48)
[2022-04-26 11:57] LABS: Bilirubin,Urine Negative (Negative); Blood,Urine Large (Negative); Budding Yeast,Urine Moderate per hpf (None Seen); Clarity,Urine Turbid (Clear); Color,Urine Light-Orange (Yellow); Glucose,Urine (UA) Normal (Normal); Ketones,Urine Negative (Negative); Leukocyte Esterase,Urine Small (Negative); Nitrite,Urine Negative (Negative); Protein,Urine 100 mg/dL (Neg-Trace); RBC,Urine TNTC per hpf (0-3); Specific Gravity,Urine > 1.030 (1.010-1.025); Squamous Epithelial Cell,Urine Few per hpf (None-Few); Urobilinogen,Urine Normal (Normal); WBC,Urine TNTC per hpf (0-3)
[2022-04-26] MEDS ORDERED: Iopamidol - 300 100 ML INFUS..BTL ONE (16:08)
[2022-04-26] MEDS ORDERED: Heparin 1,000 UNITS/500 mL 500 ML ONE (16:08)
[2022-04-26 21:20] LABS: Hematocrit 28.6 % (37.5-50.1); Hemoglobin 8.1 g/dL (12.9-16.9)
[2022-04-26] MEDS ORDERED: Vancomycin 1,500 MG/265 ML IV.SOLN IVPB SCH (22:00)
[2022-04-26] MEDS ORDERED: Vancomycin 1,250 MG/262.5 ML IV.SOLN IVPB SCH (22:00)
[2022-04-27] MEDS: Artificial Tears SOLN 15 ML BOTTLE BOTH EYES SCH ×7 (00:01→23:34)
[2022-04-27] MEDS: Pantoprazole 40 MG in 0.9 % Sodium Chloride Mini Bag 100 ML IVC SCH ×5 (02:38→23:51)
[2022-04-27] MEDS: Ipratropium/Albuterol Neb 3 ML IH SCH ×6 (03:00→23:32)
[2022-04-27 03:20] LABS: Albumin 2.1 g/dL (3.5-5.7); Albumin/Globulin Ratio 0.8 (1.1-2.2); Bilirubin,Total 0.6 mg/dL (0.3-1.0); Calcium 7.5 mg/dL (8.6-10.3); Globulin 2.5 g/dL (2.4-3.5); Potassium 5.3 mEq/L (3.5-5.1); Total Protein 4.6 g/dL (6.4-8.9)
[2022-04-27 04:01] LABS: ABG Base Excess -14 mEq/L (-2 to 3); ABG HCO3 12 mEq/L (21-27); ABG Oxygen Saturation 97 % (95-98); ABG PCO2 27 mmHg (35-45); ABG PH 7.26 pH Units (7.32-7.45); ABG PO2 100 mmHg (85-104); ABG TCO2 13 mEq/L (20-26); Blood Gas Modality ASSIST CONTROL; Blood Gas VT 500 cc
[2022-04-27 04:38] LABS: ABG Base Excess -14 mEq/L (-2 to 3); ABG HCO3 12 mEq/L (21-27); ABG Oxygen Saturation 97 % (95-98); ABG PCO2 28 mmHg (35-45); ABG PH 7.23 pH Units (7.32-7.45); ABG PO2 103 mmHg (85-104); ABG TCO2 13 mEq/L (20-26); Blood Gas VT 500 cc
[2022-04-27] MEDS: Piperacillin/Tazobactam 3.375 GM in 0.9 % Sodium Chloride Mini Bag 100 ML IVPB SCH ×3 (05:10→20:43)
[2022-04-27] MEDS: Norepinephrine 4 MG/254 ML IV.SOLN IVC SCH ×4 (08:23→15:10)
[2022-04-27] MEDS: *HR* Amiodarone 200 MG TABLET PO SCH ×2 (08:56→20:22)
[2022-04-27] MEDS: Chlorhexidine Rinse 15 ML MOUTHWASH MM SCH ×2 (09:42→20:42)
[2022-04-27 10:13] LABS: Nucleated Red Blood Cells 0.1 /100 WBC (0); Red Cell Distribution Width 25.4 % (11.5-14.5)
[2022-04-27 10:14] LABS: VBG Ionized Calcium 0.94 mmol/L (1.15-1.35)
[2022-04-27 10:15] LABS: Hemoglobin 7.7 g/dL (12.9-16.9); Mean Corpuscular HGB Conc 27.5 g/dL (31.6-35.5); Mean Corpuscular Hemoglobin 25.4 pg (28.0-33.3); Mean Corpuscular Volume 92.4 fL (83.0-100.0); Mean Platelet Volume 10.7 fL (9.4-12.4); Platelet Count 346 K/mcL (140-400); Red Blood Count 3.03 M/mcL (4.19-5.50)
[2022-04-27 10:20] LABS: White Blood Count 38.6 K/mcL (4.3-11.1)
[2022-04-27 10:33] LABS: Albumin 2.1 g/dL (3.5-5.7); Albumin/Globulin Ratio 0.9 (1.1-2.2); Bilirubin,Total 0.7 mg/dL (0.3-1.0); Calcium 7.4 mg/dL (8.6-10.3); Globulin 2.4 g/dL (2.4-3.5); Magnesium 2.1 mg/dL (1.6-2.6); Phosphorous 6.2 mg/dL (2.7-4.5); Total Protein 4.5 g/dL (6.4-8.9)
[2022-04-27] MEDS ORDERED: 0.9 % Sodium Chloride 1,000 ML ONE ×2 (10:44→20:40)
[2022-04-27 10:54] LABS: Lymphocytes # 1.2 K/mcL (0.6-4.6); Neutrophils # 37.4 K/mcL (1.6-8.9)
[2022-04-27 10:55] LABS: Anisocytosis 1+ (Not Present); Hypochromasia Present (Not Present); Platelet Estimate Normal (Normal)
[2022-04-27] MEDS ORDERED: 0.9 % Sodium Chloride 1,000 ML IVC SCH (11:45)
[2022-04-27] MEDS ORDERED: 0.9 % Sodium Chloride Mini Bag 100 ML ONE (12:59)
[2022-04-27] MEDS ORDERED: Perflutren Lipid Microsphere 1.3 ML in 0.9 % Sodium Chloride 8.7 ML IVP PRN (14:46)
[2022-04-27] MEDS: 0.9 % Sodium Chloride 1,000 ML IVC SCH ×3 (15:48→21:05)
[2022-04-27 15:57] LABS: ABG Base Excess -16 mEq/L (-2 to 3); ABG HCO3 11 mEq/L (21-27); ABG Oxygen Saturation 96 % (95-98); ABG PCO2 26 mmHg (35-45); ABG PH 7.21 pH Units (7.32-7.45); ABG PO2 98 mmHg (85-104); ABG TCO2 11 mEq/L (20-26); Blood Gas Modality AF; Blood Gas VT 500 cc
[2022-04-27] MEDS: Norepinephrine 32 MG in 0.9 % Sodium Chloride 218 ML IVC SCH ×2 (16:39→23:52)
[2022-04-27] MEDS: Ketoconazole 2% CRM 15 GM TUBE TP SCH ×2 (16:41→20:42)
[2022-04-27] MEDS: Sodium Bicarbonate 150 MEQ in Water for inj. (sterile) 1,000 ML IVC SCH (17:17)
[2022-04-27] MEDS: Doxycycline 100 MG in 0.9 % Sodium Chloride Mini Bag 100 ML IVPB SCH (20:42)
[2022-04-27 20:48] LABS: ABG Base Excess -14 mEq/L (-2 to 3); ABG HCO3 11 mEq/L (21-27); ABG Oxygen Saturation 98 % (95-98); ABG PCO2 22 mmHg (35-45); ABG PO2 115 mmHg (85-104); ABG TCO2 11 mEq/L (20-26); Blood Gas VT 500 cc
[2022-04-27 21:43] LABS: Hematocrit 22.5 % (37.5-50.1); Hemoglobin 6.4 g/dL (12.9-16.9)
[2022-04-27 22:09] LABS: Calcium 6.2 mg/dL (8.6-10.3); Potassium 5.8 mEq/L (3.5-5.1)
[2022-04-27] MEDS ORDERED: *HR* Dextrose 50 % in Water (Syg) 50 ML SYRINGE ONE (22:09)
[2022-04-27] MEDS ORDERED: 0.9 % Sodium Chloride 250 ML IVC SCH (22:15)
[2022-04-27] MEDS ORDERED: Dextrose Gel 15 GM/37.5 ML TUBE PO PRN ×2 (22:15)
[2022-04-27] MEDS ORDERED: D5% in Water 1,000 ML IVC SCH (22:15)
[2022-04-27] MEDS ORDERED: D5% in Water 1,000 ML IVC PRN (22:15)
[2022-04-27] MEDS ORDERED: *HR* Dextrose 50 % in Water (Syg) 50 ML SYRINGE IVP ONE ×2 (22:15→22:40)
[2022-04-27] MEDS ORDERED: *HR* Dextrose 50 % in Water (Syg) 50 ML SYRINGE IVP PRN (22:15)
[2022-04-27] MEDS ORDERED: Insulin Human Regular 10 UNIT in 0.9 % Sodium Chloride 10 ML IV ONE (22:40)
[2022-04-27 22:53] LABS: ABG Base Excess -16 mEq/L (-2 to 3); ABG HCO3 10 mEq/L (21-27); ABG Oxygen Saturation 98 % (95-98); ABG PCO2 23 mmHg (35-45); ABG PH 7.24 pH Units (7.32-7.45); ABG PO2 128 mmHg (85-104); ABG TCO2 10 mEq/L (20-26); Blood Gas VT 500 cc
[2022-04-28 00:51] LABS: Calcium 6.7 mg/dL (8.6-10.3); Potassium 5.4 mEq/L (3.5-5.1)
[2022-04-28] MEDS: Ipratropium/Albuterol Neb 3 ML IH SCH ×3 (03:21→11:36)
[2022-04-28] MEDS: Artificial Tears SOLN 15 ML BOTTLE BOTH EYES SCH ×2 (03:58→09:47)
[2022-04-28 04:02] LABS: ABG Base Excess -13 mEq/L (-2 to 3); ABG HCO3 12 mEq/L (21-27); ABG Oxygen Saturation 99 % (95-98); ABG PCO2 23 mmHg (35-45); ABG PH 7.31 pH Units (7.32-7.45); ABG PO2 147 mmHg (85-104); ABG TCO2 12 mEq/L (20-26); Blood Gas VT 500 cc
[2022-04-28 04:04] LABS: Nucleated Red Blood Cells 2.3 /100 WBC (0)
[2022-04-28 04:06] LABS: Hematocrit 28.7 % (37.5-50.1); Hemoglobin 8.2 g/dL (12.9-16.9); Mean Corpuscular HGB Conc 28.6 g/dL (31.6-35.5); Mean Corpuscular Hemoglobin 26.5 pg (28.0-33.3); Mean Corpuscular Volume 92.9 fL (83.0-100.0); Mean Platelet Volume 10.8 fL (9.4-12.4); Platelet Count 258 K/mcL (140-400); Red Blood Count 3.09 M/mcL (4.19-5.50); Red Cell Distribution Width 23.9 % (11.5-14.5)
[2022-04-28 04:12] LABS: White Blood Count 41.9 K/mcL (4.3-11.1)
[2022-04-28 04:18] LABS: VBG Ionized Calcium 0.84 mmol/L (1.15-1.35)
[2022-04-28] MEDS: Sodium Bicarbonate 150 MEQ in Water for inj. (sterile) 1,000 ML IVC SCH (04:37)
[2022-04-28] MEDS: Piperacillin/Tazobactam 3.375 GM in 0.9 % Sodium Chloride Mini Bag 100 ML IVPB SCH (04:37)
[2022-04-28 04:38] LABS: Anisocytosis 2+ (Not Present); Lymphocytes # 0.8 K/mcL (0.6-4.6); Monocytes # 0.8 K/mcL (0.0-1.3); Neutrophils # 40.2 K/mcL (1.6-8.9); Platelet Estimate Normal (Normal)
[2022-04-28] MEDS: Pantoprazole 40 MG in 0.9 % Sodium Chloride Mini Bag 100 ML IVC SCH (04:38)
[2022-04-28] MEDS ORDERED: Sodium Bicarbonate 150 MEQ in D5% in Water 1,000 ML IVC SCH (05:00)
[2022-04-28 05:26] LABS: Alanine Aminotransferase 1641 Units/L (7-52); Albumin 1.7 g/dL (3.5-5.7); Albumin/Globulin Ratio 0.9 (1.1-2.2); Alkaline Phosphatase 227 Units/L (34-104); Aspartate Amino Transferase > 3000 Units/L (13-39); BUN/Creatinine Ratio 18 (6-26); Bilirubin,Total 1.1 mg/dL (0.3-1.0); Blood Urea Nitrogen 45 mg/dL (8-23); Calcium 6.8 mg/dL (8.6-10.3); Carbon Dioxide 13 mEq/L (23-29); Chloride 114 mEq/L (98-107); Globulin 1.9 g/dL (2.4-3.5); Glucose 57 mg/dL (70-105); Osmolality,Calculated 317 (280-300); Phosphorous 6.3 mg/dL (2.7-4.5); Potassium 5.1 mEq/L (3.5-5.1); Sodium 149 mEq/L (136-145); Total Protein 3.6 g/dL (6.4-8.9); eGFR For African Americans 29 (> 60); eGFR For Non-African Americans 24 (> 60)
[2022-04-28] MEDS: Norepinephrine 32 MG in 0.9 % Sodium Chloride 218 ML IVC SCH (05:26)
[2022-04-28 07:17] VITALS: TEMP 96.3
[2022-04-28] MEDS ORDERED: Acetylcysteine IV 15,000 MG in D5% in Water 250 ML IVC ONE (07:36)
[2022-04-28] MEDS ORDERED: Acetylcysteine IV 5,000 MG in D5% in Water 500 ML IVC ONE (08:45)
[2022-04-28] MEDS: Doxycycline 100 MG in 0.9 % Sodium Chloride Mini Bag 100 ML IVPB SCH (09:43)
[2022-04-28] MEDS: Chlorhexidine Rinse 15 ML MOUTHWASH MM SCH (09:44)
[2022-04-28] MEDS: *HR* Amiodarone 200 MG TABLET PO SCH (09:58)
[2022-04-28] MEDS: Ketoconazole 2% CRM 15 GM TUBE TP SCH (10:06)
[2022-04-28] MEDS ORDERED: Morphine Sulfate 2 MG/ML SYRINGE IVP PRN (12:09)
[2022-04-28] MEDS ORDERED: *HR* LORazepam 2 MG/ML VIAL IVP PRN (12:10)
[2022-04-28] MEDS ORDERED: Atropine Sulfate 1% 40 DROP/2 ML BOTTLE SL PRN (12:11)
[2022-04-28] MEDS ORDERED: Haloperidol Lactate 5 MG/ML VIAL IVP PRN (12:12)
[2022-04-28 12:23] VITALS: BP 65/62; PULSE 100
[2022-04-28 12:35] VITALS: O2SAT 45
[2022-04-28] MEDS ORDERED: Acetylcysteine IV 10,000 MG in D5% in Water 1,000 ML IVC ONE (13:00)
== END 2022-04-28 14:43 | disposition expired | DRG 871 ==
LOC: ICNU → SUATTDRO 04-26 02:15
PROVIDERS: ADMIT Internal Medicine; ATTEND Internal Medicine